=== PATIENT | female | born 1950 | race Caucasian/White ===

== ENCOUNTER → 2018-09-30 | Outpatient (CLI) | payer OTHER ==
--- NOTE | 2018-10-01 10:12 | MM ---
Reason for exam: clinical finding. Last mammogram was performed 4 years and 4 months ago. History: Patient is postmenopausal. Family history of breast cancer in maternal aunt at age 40 and breast cancer in mother at age 51. Benign US LT VAD breast biopsy of the left breast, July 17, 2012. Cyst aspiration of the left breast. Taking estrogen for 2 years 2 months. Taking progesterone. Physical Findings: Nurse Summary: 2cm nodule in the right breast at 9-10 o'clock (nurse cw). MG 3D Diag Mammo W/Cad ANAYELI Bilateral CC and MLO view(s) were taken. Prior study comparison: June 03, 2014, bilateral MG screening mammo w CAD. July 17, 2012, left breast digital mammogram. The breast tissue is almost entirely fat. Finding: There is an intermediate concern, suspicious 23 mm circumscribed lobulated mass located 5-10 cm from the nipple in the upper outer quadrant of the right breast consistent with mass. These results were verbally communicated with the patient and result sheet given to the patient on 09/30/18. ASSESSMENT: Incomplete: need additional imaging evaluation, BI-RAD 0 RECOMMENDATION: Ultrasound of the right breast.
--- NOTE | 2018-10-01 10:14 | USB ---
Reason for exam: additional evaluation requested from abnormal screening. History: Patient is postmenopausal. Family history of breast cancer in maternal aunt at age 40 and breast cancer in mother at age 51. Benign US LT VAD breast biopsy of the left breast, July 17, 2012. Cyst aspiration of the left breast. Taking estrogen for 2 years 2 months. Taking progesterone. US Breast Limited RT Right limited breast ultrasound including focal area of concern, retroareolar and axilla demonstrates a 1.8 x 1.6 x 1.8cm irregular, hypoechoic, vascular lesion at 10 o'clock and a 2.7 x 3.3cm lymph node at the axilla. These results were verbally communicated with the patient and result sheet given to the patient on 09/30/18. ASSESSMENT: Highly suggestive of malignancy, BI-RAD 5 RECOMMENDATION: Surgical consultation and ultrasound core biopsy of the right breast. Called Dr. Conner with mammographic findings and has scheduled an appointment for the patient for 10/17/18 at 12:[address] Hendrickson. Biopsy scheduled for 10/28/18 at 12:20. PRELIMINARY REPORT CALLED AND FAXED TO DR. HENDRICKSON ON 10/01/18.
== END | disposition home or self-care (01) ==
LOC: RADMAMWWP 13:31
PROVIDERS: ATTEND Family Medicine
DX: N63.10 Unspecified lump in the right breast, unspecified quadrant (principal)
CPT/HCPCS: 77062; 77066

== ENCOUNTER → 2018-10-17 | Outpatient (CLI) | payer OTHER ==
[2018-10-17 12:22] VITALS: BP 116/78; PULSE 83; RESP 20; TEMP 98.4; BMI 38.0
--- NOTE | 2018-10-17 12:30 | P.GSHP ---
History of Present Illness H&P Date: 10/17/18 Chief Complaint: abnormal mammogram The patient is a 67-year-old white female who September 02 noted a lump in her right breast. She subsequently underwent a mammogram and ultrasound. The mammogram revealed an area of concern in the breast and ultrasound was performed. Ultraso und revealed a 1.8 x 1.8 cm irregular lesion at 10:00 and a 2.7 x 2.2 cm lymph node in the axilla. She is scheduled for ultrasound-guided core biopsy of both areas on October 28. Her prior mammogram was 4 years ago. The patient has no other masses or lumps in her breasts. She has no nipple discharge or skin changes of concern. Family history: 1. daughter: 11 year old daughter of a brain cancer 2. mother: lung 3. maternal aunt: breast 4. maternal aunt: breast cancer Hormonal History menarche:14 , 2 miscarraiges, breast fed: no, age at first : 28 menopause: hysterectomy complete at 52 done for bleeding BCP: 41 years hormones: none Surgical history: 1. Hysterectomy complete 2. Tonsillectomy 3. Cholecystectomy 4. Ectopic pregnancies and appendectomy 5. Back surgery 6. Wrist surgery 7. Right elbow surgery 8. All of her teeth have been extracted Medical History: 1. Back pain 2. Fibromyalgia 3. asthma 4. High cholesterol 5. Eczema Social History: smoke: none alcohol: social drugs: CBD oil - Constitutional Constitutional: Denies chills, Denies fever - EENT Eyes: bilateral blurred vision, denies pain Ears: left: decreased hearing, bilateral: tinnitus Ears, nose, mouth and throat: Reports headache, Denies sore throat - Breasts Breasts: bilateral: as per HPI - Cardiovascular Comment: a valve that "sticks" Cardiovascular: Denies chest pain, Denies shortness of breath - Respiratory Comment: Bronchial asthma - Gastrointestinal Comment: IBS, colon polyp - Genitourinary (Female) Genitourinary: Denies dysuria, Denies hematuria - Menstruation Menstruation: Reports post hysterectomy - Musculoskeletal Comment: Fibromyalgia, back surgery - Integumentary Comment: Eczema - Neurological Neurological: Reports paresthesias - Psychiatric Psychiatric: Reports anxiety, Reports depression - Endocrine Endocrine: Reports fatigue, Denies weight change - Hematologic/Lymphatic Comment: none - Allergic/Immunologic Allergic/Immunologic: Reports seasonal allergies Past Medical History Past Medical History: Asthma, Fibromyalgia, GERD/Reflux, Hyperlipidemia, Hypertension, Osteoarthritis (OA) Additional Past Medical History / Comment(s): chronic neck and back pain, UTI,ECZEMA, IBS,NEUROPATHY, diverticulosis, scoliosis, polyps, bilateral carpal tunnel History of Any Multi-Drug Resistant Organisms: None Reported Past Surgical History: Appendectomy, Back Surgery, Bladder Surgery, Cholecystectomy, Hysterectomy Additional Past Surgical History / Comment(s): right leg, bilateral feet, bilateral wrists for carpal tunnel, colonoscopy, bladder suspension, BACK SX(FUSION -HAD METAL IN BACK, since been removed), HX ECTOPIC . Surgery on left hand. Past Anesthesia/Blood Transfusion Reactions: Blood Transfusion Reaction Additional Past Anesthesia/Blood Transfusion Reaction / Comment(s): Patients states had a blood transfusion and woke up with red dots all over her skin and the nurse told her she had a reaction to the blood. Past Psychological History: Anxiety Additional Psychological History / Comment(s): PT 'S DAUGHTER AT AGE 9 FROM BRAIN TUMOR (1990) Smoking Status: Never smoker Past Alcohol Use History: Occasional Past Drug Use History: Marijuana Additional Drug Use History / Comment(s): Rarely - Past Family History Father Family Medical History: Congestive Heart Failure (CHF), Hyperlipidemia, Hypertension Additional Family Medical History / Comment(s): LIVED TO AGE 89, HX MALARIA Mother Family Medical History: Cancer Additional Family Medical History / Comment(s): BRAIN ANEURYSM AT AGE 56 Medications and Allergies Home Medications Medication Instructions Recorded Confirmed Type Albuterol Inhaler [Ventolin Hfa 1 - 2 puff INHALATION Q6H PRN 03/30/14 10/14/18 History Inhaler] Cholecalciferol [Vitamin D3 (25 1,000 unit PO DAILY 03/30/14 10/14/18 History Mcg = 1000 Iu)] Cyclobenzaprine [Flexeril] 10 mg PO HS 03/30/14 10/14/18 History Multivitamins, Thera [Multivitamin 1 each PO DAILY 03/30/14 10/14/18 History (formulary)] Aspirin EC [Ecotrin Low Dose] 81 mg PO DAILY 05/10/15 10/14/18 History Budesonide [Pulmicort Flexhaler] 180 mcg INHALATION DAILY 05/10/15 10/14/18 History Fluticasone/Vilanterol [Breo 200 mg INHALATION DAILY 05/10/15 10/14/18 History Ellipta 200-25 Mcg INH] Gabapentin [Neurontin] 400 mg PO QID 05/10/15 10/14/18 History HYDROcodone/APAP 10-325MG [[place] 1 tab PO Q6H 05/10/15 10/14/18 History 10-325] Sustain Balance 1 drop BOTH EYES BID 05/10/15 10/14/18 History DULoxetine HCL [Cymbalta] 60 mg PO QAM 06/15/15 10/14/18 History Atorvastatin [Lipitor] 20 mg PO DAILY 10/14/18 10/14/18 History Cannabidiol (Cbd) Extract 1 each PO DAILY 10/14/18 10/14/18 History [Epidiolex] Valsartan/Hydrochlorothiazide 1 each PO DAILY 10/14/18 10/14/18 History [Valsartan-Hctz 320-25 mg Tab] Allergies Allergy/AdvReac Type Severity Reaction Status Date / Time lactase [From Dairy Aid] Allergy Swelling Verified 10/14/18 12:39 latex Allergy Rash/Hives Verified 10/14/18 12:39 Latex, Natural Rubber Allergy Rash/Hives Verified 10/14/18 12:39 Sulfa (Sulfonamide Allergy Swelling Verified 10/14/18 12:39 Antibiotics) egg AdvReac Nausea & Verified 10/14/18 12:39 Vomiting & Diarrhea Milk Containing Products AdvReac Nausea & Verified 06/15/15 11:20 Vomiting & Diarrhea wheat AdvReac Nausea & Verified 10/14/18 12:39 Vomiting & Diarrhea Surgical - Exam BMI 38.1 - General obese - Eyes normal ocular movement - ENT no hearing loss, no congestion - Neck no masses, trachea midline - Respiratory normal respiratory effort, clear to auscultation - Cardiovascular Rhythm: regular Heart Sounds: normal: S1, S2 - Abdomen Abdomen: soft, non tender, no guarding, no rigid, no rebound - Integumentary normal turgor - Neurologic no disoriented, no combative - Musculoskeletal normal gait, normal posture - Psychiatric oriented to time, oriented to person, oriented to place, speech is normal, memory intact breast exam: bra 46C Right breast: Multi-positional exam fibrocystic changes, firm nodularity at the 12 o'clock position approximately 2 cm, right axillary tail firm nodularity approximately 3 cm lesion Right axilla: Right axillary tail of breast approximately 3 cm lesion Left breast: Multi-positional exam no dominant masses or nodules of concern Left axilla: No adenopathy of concern Right breast is larger than the left breast Results Mammogram and ultrasound results revealed Assessment and Plan Assessment: Impression: 1. Abnormal right breast mammogram 2. Abnormal right breast ultrasound 2. Family history of cancer 4. Mass in right breast 5. Mass right axilla 6. Fibromyalgia 7. Back pain 8. Asthma 9. 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 Patient is to have right breast and axillary ultrasound guided biopsy 2. Medical management of medical conditions Cc: Dr. Conner
== END ==
LOC: WWCWWP 11:53
PROVIDERS: ATTEND Surgery
DX: Z53.9 Procedure and treatment not carried out, unspecified reason (principal)

== ENCOUNTER → 2018-10-28 | Day surgery (SDC) | payer OTHER ==
[2018-10-28 11:57] VITALS: RESP 16; BMI 35.4
[2018-10-28 13:06] VITALS: BP 107/63; PULSE 74; TEMP 98.2
--- NOTE | 2018-10-28 13:22 | USB ---
EXAMINATION TYPE: US biopsy breast VAD RT, US breast needle core RT, MG diagnostic mammo RT wo CAD DATE OF EXAM: 10/28/2018 CLINICAL HISTORY: R98.2 ABNORMAL MAMMOGRAM. TECHNIQUE: Ultrasound guided core biopsy of right breast and axillary lymph node. COMPARISON: Bilateral diagnostic mammogram and right breast ultrasound dated 09/30/2018 FINDINGS: The procedure of ultrasound guided core biopsy was explained to the patient. Benefits, alternatives, and risks were discussed. An informed consent was then obtained. Site A: 1.8 cm highly suspicious mass at the 10:00 position. The patient was placed in supine positioning for imaging and for the procedure. The overlying skin was prepped and draped in usual sterile fashion. 10 cc of 1% lidocaine was used as anesthetic into the skin and subcutaneous tissue and 7 cc of lidocaine with epinephrine was utilized to anesthetize the subcutaneous tissues directly surrounding the site of biopsy of the 1.8 x 1.6 x 1.8 cm irregular, hypoechoic, vascular highly suspicious mass at the 10:00 position in the right breast. Under ultrasound guidance, a 12-gauge vacuum assisted biopsy gun device was used to obtain 6 core samples. Following this, a coil-shaped biopsy marker was left in the mass. Placement was confirmed on postbiopsy mammogram. Site B: 3.3 cm abnormal right axillary lymph node. The patient was placed in supine positioning for imaging and for the procedure. The overlying skin was prepped and draped in usual sterile fashion. 10 cc of 1% lidocaine was used as anesthetic into the skin and subcutaneous tissue up to an abnormally enlarged right axillary lymph node measuring 3.3 cm with cortical thickening. Under ultrasound guidance, a 18-gauge Social IQ (Social Influence Quotient) biopsy gun device was used to obtain 3 core samples. Following this, a Hydromark biopsy marker was placed in the lymph node. Confirmed on post procedural mammogram. The patient tolerated the procedure well without any immediate complication. The patient was kept in the radiology department for short stay after the procedure and then discharged home in stable condition. IMPRESSION: Successful, uncomplicated ultrasound guided core biopsy of a 1.8 cm highly suspicious mass at the 10:00 position in the right breast and abnormal 3.3 cm right axillary lymph node with cortical thickening, full pathology results to follow. Pathology Results: Malignant A. RIGHT BREAST, 10:00, ULTRASOUND GUIDED CORE BIOPSY: Scar and fat necrosis with prominent lymphoreticular inflammatory infiltrate. No malignancy is identified. See note. B. RIGHT AXILLA, CORE BIOPSY: Metastatic poorly differentiated non-small cell carcinoma consistent with breast primary, involving lymph node core biopsy tissue. See note. Recommendation Surgical consult and repeat biopsy of the right breast. Right axillary node, malignant, concordant, surgical consultation. Right 10 o'clock mass, discordant, repeat ultrasound guided biopsy. MTDD
== END ==
LOC: RADUSWWP 11:15
PROVIDERS: ATTEND Surgery
DX: C77.3 Secondary and unspecified malignant neoplasm of axilla and upper limb lymph nodes (principal); N64.1 Fat necrosis of breast; L90.5 Scar conditions and fibrosis of skin; R92.8 Other abnormal and inconclusive findings on diagnostic imaging of breast
CPT/HCPCS: 88305; 88342; 88341; 77065; 38505; 19083; A4648; J2001

== ENCOUNTER → 2018-11-03 | Outpatient (CLI) | payer OTHER ==
[2018-11-03 13:21] VITALS: BP 127/73; PULSE 91; RESP 18; TEMP 98; BMI 37.2
--- NOTE | 2018-11-03 14:12 | P.PN ---
Subjective Progress Note Date: 11/03/18 Principal diagnosis: right breast axillary cancer Teagan is a 67-year-old white female status post right breast biopsy at 10:00 and right axilla biopsy. The right breast biopsy revealed scar and fat necrosis in the right axillary biopsy revealed metastatic poorly differentiated non-small cell carcinoma. The patient does not have any complaints related to the biopsy. Her radiographs were reviewed with a radiologist and it does appear that the area in the right breast although highly suggestive of malignancy was adequately sampled. Secondary to the positive result in the axilla and the negative result in the breast was recommended that the biopsy be performed. I discussed with the patient if this was negative on rebiopsy we would recommend resection in the operating room of the area of concern in the right breast. However prior to this the biopsy will be performed in her case will be presented at tumor Board. We have also recommended that she be seen by medical oncology. The lesion was ER positive LA negative and HER-2 positive. Objective - Vital Signs Vital signs: Vital Signs Temp 98.0 F 11/03/18 12:51 Pulse 91 11/03/18 12:51 Resp 18 11/03/18 12:51 BP 127/73 11/03/18 12:51 Pulse Ox 97 11/03/18 12:51 - Exam BMI 37.2 - Constitutional General appearance: Present: obese - EENT Eyes: Present: EOMI ENT: Present: hearing grossly normal - Neck Neck: Present: normal ROM - Respiratory Respiratory: bilateral: CTA - Cardiovascular Rhythm: regular Heart sounds: normal: S1, S2 - Integumentary Integumentary: Present: normal turgor - Musculoskeletal Musculoskeletal: Present: gait normal - Psychiatric Psychiatric: Present: A&O x's 3, appropriate affect, intact judgment & insight - Additional findings Additional findings: Right breast biopsy site: Puncture site clean and dry No evidence of infection Assessment and Plan Assessment: Impression: 1. Right axillary biopsy positive for malignancy 2. Right breast biopsy negative for malignancy although highly suspicious on mammogram 3. Pain 4. Fibromyalgia 5. Asthma 6. High cholesterol 7. Eczema Plan: 1. Appointment medical oncology positive axillary node consistent with breast primary 2. Repeat biopsy lesion in the breast 2. Presented at tumor board 4. Medical management of medical conditions CC: Dr. Conner
== END | disposition home or self-care (01) ==
LOC: WWCWWP 11:54
PROVIDERS: ATTEND Surgery
DX: Z53.9 Procedure and treatment not carried out, unspecified reason (principal)

== ENCOUNTER → 2018-11-12 | Day surgery (SDC) | payer OTHER ==
[2018-11-12 13:35] VITALS: RESP 16; BMI 38.9
[2018-11-12 14:49] VITALS: BP 129/82; PULSE 78; TEMP 97.9
--- NOTE | 2018-11-12 21:23 | USB ---
EXAMINATION TYPE: US biopsy breast VAD RT DATE OF EXAM: 11/12/2018 CLINICAL HISTORY: R92.8 ABN MAMMO. Neoplasm within the axillary lymph node, and located primary TECHNIQUE: Ultrasound guided core biopsy of right breast. COMPARISON: NONE FINDINGS: The procedure of ultrasound guided core biopsy was explained to the patient. Benefits, alternatives, and risks were discussed. Discussions included standard infection and bleeding. An informed consent was then obtained. A timeout was performed. The patient was placed in supine positioning for imaging and for the procedure. The overlying skin was prepped with Betadine and draped in usual sterile fashion. Lidocaine buffered with bicarbonate was used as anesthetic into the skin and subcutaneous tissue up to area of concern in the right breast. A nisha was made with surgical scalpel. Under ultrasound guidance, a 12-gauge vacuum assisted biopsy gun device was used to obtain 12 core samples. 8 were obtained near the previous biopsy site. An additional 4 were obtained along the superior margin somewhat away from the previous biopsy site, the lesion may be 9 mm in size and essentially contiguous with the subsequent biopsies along the superior margin in all samples were submitted is a single sample. Following this, a biopsy clip was left in the lesion superior to the deep biopsy site deep to the superficial biopsy site. There was some bleeding present and the fourth sample at the superior site and the procedure was terminated. Blood loss was estimated at 10 mL or less. However, while holding pressure for good hemostasis a small hematoma was felt to be present. Additional direct pressure was obtained. While monitoring the patient was felt that this hematoma increased in size and additional imaging was performed for evaluation. Real-time observation was performed. The estimated of the hematoma size originally was 5 x 7 cm. A suspicious focal hematoma was not evident. There is suggestion of a lobular low density suggesting pockets of hemorrhage. However, Doppler sonography and color flow sonography do not identify active bleeding at the time of observation. This hematoma appeared stable following monitoring the patient in the department. Standard discharge instructions as well as specific instructions regarding the hematoma were discussed with the patient including contacts and active bleeding treatment. The patient tolerated the procedure well. The patient was kept in the radiology department for short stay after the procedure and then discharged home in stable condition. Postprocedure mammogram: Due to the hematoma formation procedure mammogram was deferred at this time. IMPRESSION: 1. Successful biopsy of a suspicious ultrasound abnormality from both inferior and superior to the lesion. 2. Subsequent hematoma formation following the biopsy. Recommendations: 1. Recommendations are pending pathology results of this biopsy site. 2. Treatment options should be considered for the positive previous lymph node biopsy results with neoplasm Pathology Results: Benign RIGHT BREAST AT TEN O'CLOCK, ULTRASOUND GUIDED CORE BIOPSY: Nodular scar with fat necrosis and prominent lymphohistiocytic inflammation. Negative for malignancy. See note. Recommendation Surgical consult of the right breast. 1. Excision at 10 o'clock recommended. 2. MRI of the breasts recommended. 3. Treatment of positive right axillary node. MTDD
== END ==
LOC: RADUSWWP 13:23
PROVIDERS: ATTEND Surgery
DX: N64.1 Fat necrosis of breast (principal); L98.6 Other infiltrative disorders of the skin and subcutaneous tissue; L90.5 Scar conditions and fibrosis of skin; R92.8 Other abnormal and inconclusive findings on diagnostic imaging of breast; Z91.012 Allergy to eggs; Z91.040 Latex allergy status; Z91.011 Allergy to milk products; Z88.2 Allergy status to sulfonamides; Z91.018 Allergy to other foods; Z91.048 Other nonmedicinal substance allergy status
CPT/HCPCS: 88305; 19083; A4648; J2001

== ENCOUNTER → 2018-11-27 | Outpatient (CLI) | payer OTHER ==
[2018-11-27 13:12] VITALS: BP 115/75; PULSE 90; RESP 18; TEMP 98.2; BMI 39.4
--- NOTE | 2018-11-27 13:26 | P.PN ---
Subjective Progress Note Date: 11/27/18 Principal diagnosis: Biopsy-proven malignancy in the right axillary lymph node Teagan is a 67-year-old white female status post ultrasound-guided core biopsy of the right axilla. This was positive for metastatic poorly differentiated non-small cell carcinoma consistent with breast primary. This is ER positive IA negative and HER-2 positive. The patient had a highly suspicious lesion in the right breast for which she underwent ultrasound-guided core biopsy twice. The first core biopsy was done on and shows scar and fat necrosis. Secondary to the BIRADS 5 appearance of the lesion and repeat core biopsy was performed on 11/12/2018 this also showed nodular scar with fat necrosis and prominent lymphohistiocytic inflammation. The patient developed a ecchymosis and hematoma after the second biopsy. The patient is not complaining of any problems with pain or infection. The patient's case was presented at tumor board and of concern is the fact that the lesion was identified in the breast on mammogram and ultrasound which is considered a BIRADS 5 highly suggestive of malignancy. 2 core biopsies of this have been negative for cancer. She does have a positive axillary lymph node which was biopsied via core biopsy. After discussion at tumor board it is recommended the patient undergo a PET scan as well as bilateral breast MRI. Both have been scheduled. Family history: 1. Daughter: 11 of brain cancer 2. Mother: Lung cancer 3. Maternal aunt: Breast cancer 4. Second maternal aunt: Breast cancer Objective - Vital Signs Vital signs: Vital Signs Temp 98.2 F 11/27/18 13:08 Pulse 90 11/27/18 13:08 Resp 18 11/27/18 13:08 BP 115/75 11/27/18 13:08 Pulse Ox 95 11/27/18 13:08 - Exam BMI 39.4 - Constitutional General appearance: Present: obese - EENT Eyes: Present: EOMI ENT: Present: hearing grossly normal - Neck Neck: Present: normal ROM - Respiratory Respiratory: bilateral: CTA - Cardiovascular Rhythm: regular Heart sounds: normal: S1, S2 - Integumentary Integumentary Comment(s): Right breast: Patient has minimal ecchymosis however there is approximately a 7 cm hematoma at the site of her core biopsy. Integumentary: Present: normal turgor Assessment and Plan Assessment: Impression: 1. Abnormal right breast mammogram 2. Abnormal right breast ultrasound 3. Family history of cancer 4. Mass in right breast 5. Mass right axilla 6. Fibromyalgia 7. Back pain 8. Asthma 9. Patient with valvular heart dysfunction 10. Hematoma at site of recent core biopsy biopsy was negative for cancer on 2 occasions Plan: 1. Patient's case has been presented at tumor Board and the patient is recommended to undergo a bilateral breast MRI to try to find the source of the positive axillary node. The lesion in the breast remains highly suggestive of malignancy and if the MRI is negative needle local excisional biopsy will most likely be recommended if the MRI shows a positive area it may be that the patient will be recommended to undergo MRI directed biopsy 2. PET scan this is been ordered 3. Consider genetic testing 4. Follow up here after her PET scan and breast MRI CC: Dr. Conner
== END | disposition home or self-care (01) ==
LOC: WWCWWP 11-12 12:50
PROVIDERS: ATTEND Surgery
DX: Z53.9 Procedure and treatment not carried out, unspecified reason (principal)

== ENCOUNTER → 2018-11-29 | Outpatient (CLI) | payer OTHER ==
--- NOTE | 2018-12-01 07:28 | PE ---
EXAMINATION TYPE: PET CT fusion skull to thigh DATE OF EXAM: 11/29/2018 COMPARISON: Chest CT October 13, 2014 HISTORY: Newly diagnosed right breast cancer on lymph node biopsy October 28, 2018 TECHNIQUE: Following the intravenous administration of 12.19 mCi of F-18 FDG, whole body images are performed from the skull base to the midthigh. Images are reviewed on the computer in the coronal, a xial, and sagittal planes. Reconstructed rotating images are created on independent workstation and reviewed on the computer. A noncontrast CT is performed in conjunction with the PET scan. SCAN: Initial Scan FINDINGS: Suboptimal study due to body habitus. SKULL BASE AND NECK: Focus of abnormal hypermetabolic uptake at level of right vocal cord axial carole ge [address] abnormality with involvement of the right aryepiglottic fold. Max SUV at this level with 4.93. Consider direct visualization. There is 1.0 x 0.7 cm hypermetabolic right parotid nodule axial image 28 that warrants further workup . Max SUV is 5.37 at this level. Adjacent prominent but subcentimeter ametabolic lymph node is seen i nferior deep to this axial image 31. CHEST, MEDIASTINUM, AND HILAR REGION: Redemonstration of known right axillary neoplasm measuring 3.0 x 1.7 cm axial image 83 with max SUV of 6.05. Some misregistration artifact at this level is noted. E ntire right breast not included in field of view CT images with mild lateral hypermetabolic uptake ax ial image 87 on the PET images. Max SUV of only 1.6. Mild uptake posterior lateral left shoulder muscle is presumed inflammatory given vertical orientati on. No areas of suspicious hypermetabolic uptake in the left breast or visualized portions of the tho rax. ABDOMEN AND PELVIS: No areas of suspicious hypermetabolic uptake in the abdomen or pelvis seen. Mild uptake involving lateral proximal thigh muscles is presumed postinflammatory. OSSEOUS STRUCTURES: No suspicious hypermetabolic uptake. OTHER CT: Cholecystectomy clips are seen. Subcentimeter hyperdense focus anterior left kidney axial i mage 134 favors proteinaceous cyst. Uterus suspected surgically absent. Postsurgical changes lower lumbar spine is present. There is prominent spurring and disc space narrow ing in the lower cervical spine. IMPRESSION: No metastatic malignancy is evident in the abdomen or pelvis or thorax and opposite left breast. Suboptimal study due to large body habitus. Redemonstration of known right axillary neoplasm. Suspicious right parotid lesion, advise ENT referral and consider ultrasound-guided sampling. Attent ion to right aryepiglottic fold near the vocal cord at time of ENT referral. Bilateral breast MRI sti ll advised.
== END | disposition home or self-care (01) ==
LOC: RADPETMAIN 10:33
PROVIDERS: ATTEND Internal Medicine Hematology & Oncology
DX: C50.911 Malignant neoplasm of unspecified site of right female breast (principal)
CPT/HCPCS: 78815; A9552

== ENCOUNTER → 2018-12-08 | Outpatient (CLI) | payer OTHER ==
--- NOTE | 2018-12-08 16:45 | ECHOF ---
Referral Reason:C50.911 breast ca MEASUREMENTS -------- HEIGHT: 160.0 cm WEIGHT: 102.5 kg BP: RVIDd: 4.4 cm (< 3.3) IVSd: 1.1 cm (0.6 - 1.1) LVIDd: 4.3 cm (3.9 - 5.3) LVPWd: 1.2 cm (0.6 - 1.1) IVSs: 1.2 cm LVIDs: 3.0 cm LVPWs: 1.3 cm LA Diam: 3.4 cm (2.7 - 3.8) LAESV Index (A-L): 22.53 ml/m Ao Diam: 3.6 cm (2.0 - 3.7) AV Cusp: 1.2 cm (1.5 - 2.6) LA Diam: 3.2 cm (2.7 - 3.8) MV EXCURSION: 18.048 mm (> 18.000) MV EF SLOPE: 70 mm/s (70 - 150) EPSS: 1.0 cm MV E German: 0.57 m/s MV DecT: 258 ms MV A German: 0.69 m/s MV E/A Ratio: 0.83 AR PHT: 534 ms RAP: 5.00 mmHg RVSP: 24.37 mmHg FINDINGS -------- Sinus rhythm. This was a technically adequate study. LV size, wall thickness and systolic function are normal, with an EF greater than 55%. The left severo tricular size is normal. The diastolic filling pattern is normal for the age of the patient 7.19. The right ventricle is normal in size. Normal LA size by volume 22+/-6 ml/m2. The right atrial size is normal. There is mild aortic valve sclerosis. There is mild aortic regurgitation. Mild mitral annular calcification present. Mild mitral regurgitation is present. Mild tricuspid regurgitation present. There is no evidence of pulmonary hypertension. The right v entricular systolic pressure, as measured by Doppler, is 24.37mmHg. The pulmonic valve was not well visualized. The aortic root size is normal. There is no pericardial effusion. CONCLUSIONS -------- 1. Sinus rhythm. 2. This was a technically adequate study. 3. LV size, wall thickness and systolic function are normal, with an EF greater than 55%. 4. The left ventricular size is normal. 5. The diastolic filling pattern is normal for the age of the patient 7.19 6. Normal LA size by volume 22+/-6 ml/m2. 7. There is mild aortic valve sclerosis. 8. There is mild aortic regurgitation. 9. Mild mitral annular calcification present. 10. Mild mitral regurgitation is present. 11. Mild tricuspid regurgitation present. 12. There is no evidence of pulmonary hypertension. 13. The pulmonic valve was not well visualized. 14. The aortic root size is normal. 15. There is no pericardial effusion. SHIP'S OFFICER: Elyssa Cano RDCS
== END | disposition home or self-care (01) ==
LOC: RADECHMAIN 11:13
PROVIDERS: ATTEND Internal Medicine Hematology & Oncology
DX: Z08 Encounter for follow-up examination after completed treatment for malignant neoplasm (principal); I08.3 Combined rheumatic disorders of mitral, aortic and tricuspid valves
CPT/HCPCS: 93306

== ENCOUNTER 2018-12-15 08:52 | Day surgery (SDC) | payer OTHER ==
[2018-12-15 09:33] VITALS: RESP 18; TEMP 98.7
[2018-12-15 11:10] VITALS: BP 145/70; PULSE 89
--- NOTE | 2018-12-15 13:57 | US ---
ULTRASOUND GUIDED PAROTID GLAND MASS CORE BIOPSY: CLINICAL HISTORY: Her right parotid gland FINDINGS: The procedure was explained to the patient. The risks, complications, benefits and alternatives were discussed and any questions were answered. Informed consent was obtained. Patient was placed supin e on the ultrasound table and prepped and draped in the usual sterile fashion. Utilizing a 18 G core biopsy needle single samples obtained of the right parotid mass. Patient was stable throughout the procedure. Pathology is pending. All elements of maximal barrier technique were utilized. IMPRESSION: 1. Successful ultrasound guided core biopsy of the right parotid gland mass.
== END 2018-12-15 10:50 | disposition home or self-care (01) ==
LOC: RADPROMAIN 08:52
PROVIDERS: ATTEND Internal Medicine Hematology & Oncology
DX: K11.8 Other diseases of salivary glands (principal); C50.919 Malignant neoplasm of unspecified site of unspecified female breast
CPT/HCPCS: 42400; 76942; 88305

== ENCOUNTER 2019-03-04 17:46 | Emergency (ER) | payer OTHER, MEDICARE ==
[2019-03-04] MEDS ORDERED: SODIUM CHLORIDE 0.9% 1,000 ML IV STA (19:03)
[2019-03-04] MEDS ORDERED: ACETAMINOPHEN TAB 500 MG TAB PO STA (19:03)
[2019-03-04] MEDS ORDERED: KETOROLAC 30 MG/ML 1 ML VIAL IVP STA (19:24)
--- NOTE | 2019-03-04 19:33 | XR ---
EXAMINATION TYPE: XR chest 1V portable DATE OF EXAM: 03/04/2019 COMPARISON: NONE HISTORY: Fever TECHNIQUE: Single view FINDINGS: There is right central venous catheter with tip in the superior vena cava. Lungs are clear of infiltrate. There is elevated right diaphragm. Bony thorax is intact. There is no sign of pleural effusion. IMPRESSION: Elevated right diaphragm could relate to some paralysis. No acute lung disease.
--- NOTE | 2019-03-04 20:05 | ED ---
General Adult HPI - General Chief complaint: Fever Stated complaint: FEVER Time Seen by Provider: 03/04/19 19:03 Source: patient Mode of arrival: ambulatory Limitations: no limitations - History of Present Illness Initial comments: Dictation was produced using [employer] dictation software. please excuse any grammatical, word or spelling errors. Chief Complaint: 68-year-old feel presents with pyrexia. History of Present Illness: She is 68-year-old female presents today with pyrexia. Patient has history of breast cancer. She had chemotherapy last week. She was at home and she measured a temperature to be 100.7 orally. Patient was instructed by her oncologist to check her temperature couple times a day and to come to the emergency department if she is above 100. Patient denies any symptoms at this time. She wishes a little shaky but denies any constitutional symptoms. The ROS documented in this emergency department record has been reviewed and confirmed by me. Those systems with pertinent positive or negative responses have been documented in the HPI. All other systems are other negative and/or noncontributory. PHYSICAL EXAM: General Impression: Alert and oriented x3, not in acute distress HEENT: Normocephalic atraumatic, extra-ocular movements intact, pupils equal and reactive to light bilaterally, mucous membranes moist. Cardiovascular: Heart regular rate and rhythm, S1&S2 audible, no murmurs, rubs or gallops Chest: Lungs clear to auscultation bilaterally, no rhonchi, no wheeze, no rales Abdomen: Bowel sounds present, abdomen soft, non-tender, non-distended, no organomegaly Musculoskeletal: Pulses present and equal in all extremities, no peripheral edema Motor: no focal deficits noted Neurological: CN II-XII grossly intact, no focal motor or sensory deficits noted Skin: Intact with no visualized rashes Psych: Normal affect and mood ED course: 68-year-old female presents with elevated temperature at home. Temperature in the emergency department and 0.7. Rest vital signs within acceptable limits. She has no localizing symptoms. Laboratory evaluation obtained. Leukopenia 1.4. Metabolic panel shows sodium 129, potassium 2.8. Metabolic rest metabolic panel is unremarkable. Urinalysis is negative. Flu and strep test is negative. Chest x-ray is nonacute. Repeat vital signs shows no pyrexia. She given supplemental potassium and intravenous fluids. Repeat potassium is 3.0. Patient is adamant about being discharged. Patient given option to be admitted for medical monitoring and recheck of electrolytes abnormalities morning. She refuses and would rather be discharged with outpatient management of symptoms. States that she can manage her symptoms at home. Patient must follow-up with oncologist or primary care physician for recheck of electrolyte abnormalities tomorrow. - Related Data Home Medications Medication Instructions Recorded Confirmed Albuterol Inhaler [Ventolin Hfa 1 - 2 puff INHALATION RT-QID PRN 03/30/1402/15 Inhaler] Cholecalciferol [Vitamin D3 (25 1,000 unit PO DAILY 03/30/14 03/05/19 Mcg = 1000 Iu)] Cyclobenzaprine [Flexeril] 10 mg PO HS 03/30/14 03/05/19 Multivitamins, Thera [Multivitamin 1 tab PO DAILY 03/30/14 03/05/19 (formulary)] Fluticasone/Vilanterol [Breo 2 puff INHALATION RT-DAILY 05/10/15 03/05/19 Ellipta 200-25 Mcg INH] Gabapentin [Neurontin] 400 mg PO QID 05/10/15 03/05/19 HYDROcodone/APAP 10-325MG [[place] 1 tab PO QID 05/10/15 03/05/19 10-325] Atorvastatin [Lipitor] 20 mg PO HS 10/14/18 03/05/19 Ascorbic Acid [Vitamin C] 1,000 mg PO DAILY 03/05/19 03/05/19 Calcium/Magnesium/Zinc 4 tab PO DAILY 03/05/19 03/05/19 [Muptkew-Dhshkffci-Dqij Tablet] DULoxetine HCL [Cymbalta] 60 mg PO DAILY 03/05/19 03/05/19 Magnesium Oxide 400 mg PO DAILY 03/05/19 03/05/19 Nystatin 1 applic TOPICAL TID PRN 03/05/19 03/05/19 Omeprazole [PriLOSEC] 20 mg PO BID 03/05/19 03/05/19 Ondansetron [Zofran ODT] 4 mg PO Q6H PRN 03/05/19 03/05/19 Prochlorperazine [Compazine] 10 mg PO Q6H PRN 03/05/19 03/05/19 Temazepam [Restoril] 15 mg PO HS PRN 03/05/19 03/05/19 Valsartan/Hydrochlorothiazide 1 tab PO DAILY 03/05/19 03/05/19 [Valsartan-Hctz 320-25 mg Tab] Vitamin E 1,000 unit PO DAILY 03/05/19 03/05/19 Allergies Allergy/AdvReac Type Severity Reaction Status Date / Time lactase [From Dairy Aid] Allergy Swelling Verified 03/05/19 00:05 latex Allergy Rash/Hives Verified 03/05/19 00:05 Latex, Natural Rubber Allergy Rash/Hives Verified 03/05/19 00:05 Sulfa (Sulfonamide Allergy Swelling Verified 03/05/19 00:05 Antibiotics) pollen extracts AdvReac Intermediate Rhinitis Verified 03/05/19 00:05 egg AdvReac Nausea & Verified 03/05/19 00:05 Vomiting & Diarrhea Milk Containing Products AdvReac Nausea & Verified 03/05/19 00:05 Vomiting & Diarrhea wheat AdvReac Nausea & Verified 03/05/19 00:05 Vomiting & Diarrhea Review of Systems ROS Statement: Those systems with pertinent positive or pertinent negative responses have been documented in the HPI. ROS Other: All systems not noted in ROS Statement are negative. Past Medical History Past Medical History: Cancer Additional Past Medical History / Comment(s): chronic neck and back pain, UTI,ECZEMA, IBS,NEUROPATHY, diverticulosis, scoliosis, polyps, bilateral carpal tunnel. Current Right Breast cancer History of Any Multi-Drug Resistant Organisms: None Reported Past Surgical History: Appendectomy, Back Surgery, Bladder Surgery, Cholecystectomy, Hysterectomy Additional Past Surgical History / Comment(s): right leg, bilateral feet, bilateral wrists for carpal tunnel, colonoscopy, bladder suspension, BACK SX(FUSION -HAD METAL IN BACK, since been removed), HX ECTOPIC . Surgery on left hand. Past Anesthesia/Blood Transfusion Reactions: Blood Transfusion Reaction Additional Past Anesthesia/Blood Transfusion Reaction / Comment(s): Patients states had a blood transfusion and woke up with red dots all over her skin and the nurse told her she had a reaction to the blood. Past Psychological History: Anxiety Smoking Status: Never smoker Past Alcohol Use History: Occasional Past Drug Use History: Marijuana - Past Family History Daughter(s) Family Medical History: Cancer Additional Family Medical History / Comment(s): Passed of a brain tumor at the age of 11 in 1990 Father Family Medical History: Congestive Heart Failure (CHF), Hyperlipidemia, Hypertension Additional Family Medical History / Comment(s): LIVED TO AGE 89, HX MALARIA Mother Family Medical History: Cancer Additional Family Medical History / Comment(s): BRAIN ANEURYSM AT AGE 56 General Exam Limitations: no limitations Course Vital Signs 03/04/19 17:56 Temperature 99.7 F H Pulse Rate 100 Respiratory 20 Rate Blood Pressure 100/64 O2 Sat by Pulse 96 Oximetry Medical Decision Making - Lab Data Result diagrams: 03/04/19 19:43 03/05/19 00:10 Lab Results 03/04/19 03/04/19 03/04/19 Range/Units 19:42 19:43 19:43 WBC 1.4 L* (3.8-10.6) k/uL RBC 3.16 L (3.80-5.40) m/uL Hgb 10.3 L (11.4-16.0) gm/dL Hct 28.8 L (34.0-46.0) % MCV 91.1 (80.0-100.0) fL MCH 32.6 (25.0-35.0) pg MCHC 35.7 (31.0-37.0) g/dL RDW 15.3 (11.5-15.5) % Plt Count 148 L (150-450) k/uL Neutrophils % (Manual) 16 % Band Neutrophils % 1 % Lymphocytes % (Manual) 73 % Monocytes % (Manual) 10 % Neutrophils # [employer] Neutrophils # (Manual) 0.20 L* (1.3-7.7) k/uL Lymphocytes # (Manual) 1.02 (1.0-4.8) k/uL Monocytes # (Manual) 0.14 (0-1.0) k/uL Nucleated RBCs 0 (0-0) /100 WBC Manual Slide Review Performed Sodium 129 L (137-145) mmol/L Potassium 2.8 L (3.5-5.1) mmol/L Chloride 91 L (98-107) mmol/L Carbon Dioxide 30 (22-30) mmol/L Anion Gap 8 mmol/L BUN 6 L (7-17) mg/dL Creatinine 0.55 (0.52-1.04) mg/dL Est GFR (CKD-EPI)AfAm >90 (>60 ml/min/1.73 sqM) Est GFR (CKD-EPI)NonAf >90 (>60 ml/min/1.73 sqM) Glucose 100 H (74-99) mg/dL Plasma Lactic Acid Ayaan (0.7-2.0) mmol/L Calcium 9.2 (8.4-10.2) mg/dL Total Bilirubin 0.9 (0.2-1.3) mg/dL AST 35 (14-36) U/L ALT 29 (4-34) U/L Alkaline Phosphatase 55 (38-126) U/L Total Protein 6.5 (6.3-8.2) g/dL Albumin 3.8 (3.5-5.0) g/dL Urine Color Urine Appearance (Clear) Urine pH (5.0-8.0) Ur Specific [place] (1.001-1.035) Urine Protein (Negative) Urine Glucose (UA) (Negative) Urine Ketones (Negative) Urine Blood (Negative) Urine Nitrite (Negative) Urine Bilirubin (Negative) Urine Urobilinogen (<2.0) mg/dL Ur Leukocyte Esterase (Negative) Influenza Type A RNA (Not Detectd) Influenza Type B (PCR) (Not Detectd) Group A Strep Rapid Negative (Negative) 03/04/19 03/04/19 03/05/19 Range/Units 19:43 19:43 00:10 WBC (3.8-10.6) k/uL RBC (3.80-5.40) m/uL Hgb (11.4-16.0) gm/dL Hct (34.0-46.0) % MCV (80.0-100.0) fL MCH (25.0-35.0) pg MCHC (31.0-37.0) g/dL RDW (11.5-15.5) % Plt Count (150-450) k/uL Neutrophils % (Manual) % Band Neutrophils % % Lymphocytes % (Manual) % Monocytes % (Manual) % Neutrophils # Neutrophils # (Manual) (1.3-7.7) k/uL Lymphocytes # (Manual) (1.0-4.8) k/uL Monocytes # (Manual) (0-1.0) k/uL Nucleated RBCs (0-0) /100 WBC Manual Slide Review Sodium (137-145) mmol/L Potassium 3.0 L (3.5-5.1) mmol/L Chloride (98-107) mmol/L Carbon Dioxide (22-30) mmol/L Anion Gap mmol/L BUN (7-17) mg/dL Creatinine (0.52-1.04) mg/dL Est GFR (CKD-EPI)AfAm (>60 ml/min/1.73 sqM) Est GFR (CKD-EPI)NonAf (>60 ml/min/1.73 sqM) Glucose (74-99) mg/dL Plasma Lactic Acid Ayaan 1.4 (0.7-2.0) mmol/L Calcium (8.4-10.2) mg/dL Total Bilirubin (0.2-1.3) mg/dL AST (14-36) U/L ALT (4-34) U/L Alkaline Phosphatase (38-126) U/L Total Protein (6.3-8.2) g/dL Albumin (3.5-5.0) g/dL Urine Color Urine Appearance (Clear) Urine pH (5.0-8.0) Ur Specific [place] (1.001-1.035) Urine Protein (Negative) Urine Glucose (UA) (Negative) Urine Ketones (Negative) Urine Blood (Negative) Urine Nitrite (Negative) Urine Bilirubin (Negative) Urine Urobilinogen (<2.0) mg/dL Ur Leukocyte Esterase (Negative) Influenza Type A RNA Not Detected (Not Detectd) Influenza Type B (PCR) Not Detected (Not Detectd) Group A Strep Rapid (Negative) 03/05/19 Range/Units 00:23 WBC (3.8-10.6) k/uL RBC (3.80-5.40) m/uL Hgb (11.4-16.0) gm/dL Hct (34.0-46.0) % MCV (80.0-100.0) fL MCH (25.0-35.0) pg MCHC (31.0-37.0) g/dL RDW (11.5-15.5) % Plt Count (150-450) k/uL Neutrophils % (Manual) % Band Neutrophils % % Lymphocytes % (Manual) % Monocytes % (Manual) % Neutrophils # Neutrophils # (Manual) (1.3-7.7) k/uL Lymphocytes # (Manual) (1.0-4.8) k/uL Monocytes # (Manual) (0-1.0) k/uL Nucleated RBCs (0-0) /100 WBC Manual Slide Review Sodium (137-145) mmol/L Potassium (3.5-5.1) mmol/L Chloride (98-107) mmol/L Carbon Dioxide (22-30) mmol/L Anion Gap mmol/L BUN (7-17) mg/dL Creatinine (0.52-1.04) mg/dL Est GFR (CKD-EPI)AfAm (>60 ml/min/1.73 sqM) Est GFR (CKD-EPI)NonAf (>60 ml/min/1.73 sqM) Glucose (74-99) mg/dL Plasma Lactic Acid Ayaan (0.7-2.0) mmol/L Calcium (8.4-10.2) mg/dL Total Bilirubin (0.2-1.3) mg/dL AST (14-36) U/L ALT (4-34) U/L Alkaline Phosphatase (38-126) U/L Total Protein (6.3-8.2) g/dL Albumin (3.5-5.0) g/dL Urine Color Yellow Urine Appearance Clear (Clear) Urine pH 6.0 (5.0-8.0) Ur Specific [place] 1.023 (1.001-1.035) Urine Protein Trace H (Negative) Urine Glucose (UA) Negative (Negative) Urine Ketones Negative (Negative) Urine Blood Negative (Negative) Urine Nitrite Negative (Negative) Urine Bilirubin Negative (Negative) Urine Urobilinogen 2.0 (<2.0) mg/dL Ur Leukocyte Esterase Negative (Negative) Influenza Type A RNA (Not Detectd) Influenza Type B (PCR) (Not Detectd) Group A Strep Rapid (Negative) Disposition Clinical Impression: Hypokalemia, Hyponatremia Disposition: HOME SELF-CARE Condition: Good Instructions (If sedation given, give patient instructions): Fever in Adults (ED) Is patient prescribed a controlled substance at d/c from ED?: No Referrals: Rolando Sanderson MD [Primary Care Provider] - 1-2 days Time of Disposition: 00:39
[2019-03-04 20:08] LABS: ALT 29 U/L (4-34); AST 35 U/L (14-36); African American GFR (CKD) >90 (>60 ml/min/1.73 sqM); Albumin 3.8 g/dL (3.5-5.0); Alkaline Phosphatase 55 U/L (38-126); Anion Gap 8 mmol/L; Blood Urea Nitrogen 6 mg/dL (7-17); Calcium 9.2 mg/dL (8.4-10.2); Carbon Dioxide 30 mmol/L (22-30); Chloride 91 mmol/L (98-107); Glucose 100 mg/dL (74-99); Non-African American GFR(CKD) >90 (>60 ml/min/1.73 sqM); Potassium 2.8 mmol/L (3.5-5.1); Sodium 129 mmol/L (137-145); Total Bilirubin 0.9 mg/dL (0.2-1.3); Total Protein 6.5 g/dL (6.3-8.2)
[2019-03-04 20:23] LABS: HCT 28.8 % (34.0-46.0); HGB 10.3 gm/dL (11.4-16.0); MCH 32.6 pg (25.0-35.0); MCHC 35.7 g/dL (31.0-37.0); MCV 91.1 fL (80.0-100.0); Mean Platelet Volume 8.4; Platelet Count 148 k/uL (150-450); RBC 3.16 m/uL (3.80-5.40); RDW 15.3 % (11.5-15.5)
[2019-03-04 20:31] LABS: WBC 1.4 k/uL (3.8-10.6)
[2019-03-04 20:54] LABS: Band Neutrophils % 1 %; Lymphocytes # (M) 1.02 k/uL (1.0-4.8); Monocytes # (M) 0.14 k/uL (0-1.0); Neutrophils % (M) 16 %; Nucleated Red Blood Cells 0 /100 WBC (0-0); Total Cells Counted 100
[2019-03-04] MEDS ORDERED: POTASSIUM CHLORIDE ER 20 MEQ TAB.ER PO STA ×2 (21:00→22:42)
[2019-03-04] MEDS: POTASSIUM CHLORIDE 10 MEQ in WATER FOR INJECTION 1 100ML.BAG IVPB SCH (22:58)
[2019-03-05] MEDS: POTASSIUM CHLORIDE 10 MEQ in WATER FOR INJECTION 1 100ML.BAG IVPB SCH ×2 (00:03→01:17)
[2019-03-05 00:32] LABS: Appearance,Urine Clear (Clear); Bilirubin,Urine Negative (Negative); Blood,Urine Negative (Negative); Color,Urine Yellow; Glucose,Urine (UA) Negative (Negative); Ketones,Urine Negative (Negative); Leukocyte Esterase,Urine Negative (Negative); Nitrite,Urine Negative (Negative); Protein,Urine Trace (Negative); Specific Gravity,Urine 1.023 (1.001-1.035)
[2019-03-05 01:10] VITALS: BP 120/56; PULSE 85; RESP 18; TEMP 99.3
== END 2019-03-05 01:15 | disposition home or self-care (01) ==
LOC: EC 17:46
DX: E87.1 Hypo-osmolality and hyponatremia (principal); E87.6 Hypokalemia; D72.819 Decreased white blood cell count, unspecified; C50.911 Malignant neoplasm of unspecified site of right female breast; R50.9 Fever, unspecified; G62.9 Polyneuropathy, unspecified; G89.29 Other chronic pain; K58.9 Irritable bowel syndrome, unspecified; Z88.2 Allergy status to sulfonamides; Z91.011 Allergy to milk products; Z91.012 Allergy to eggs; Z91.018 Allergy to other foods; Z91.040 Latex allergy status; Z91.048 Other nonmedicinal substance allergy status; Z79.51 Long term (current) use of inhaled steroids; Z79.891 Long term (current) use of opiate analgesic; Z79.899 Other long term (current) drug therapy; Z92.21 Personal history of antineoplastic chemotherapy; Z53.20 Procedure and treatment not carried out because of patient's decision for unspecified reasons
CPT/HCPCS: 36415; 80053; 83605; 85025; 87040; 87081; 87430; 87502; 71045; 99283; 96374; 96375; 96361; J1885; J3480; 81003; 84132

== ENCOUNTER → 2019-05-08 | Outpatient (CLI) | payer OTHER ==
--- NOTE | 2019-05-14 17:00 | ECHOF ---
Referral Reason:Z01.818 Pre Op MEASUREMENTS -------- HEIGHT: 160.0 cm WEIGHT: 87.5 kg BP: IVSd: 1.0 cm (0.6 - 1.1) LVIDd: 3.2 cm (3.9 - 5.3) LVPWd: 1.3 cm (0.6 - 1.1) IVSs: 1.5 cm LVIDs: 2.2 cm LVPWs: 1.7 cm RVIDd: 4.0 cm (< 3.3) LAESV Index (A-L): 33.95 ml/m Ao Diam: 3.5 cm (2.0 - 3.7) AV Cusp: 2.0 cm (1.5 - 2.6) MV E German: 0.53 m/s MV DecT: 176 ms MV A German: 0.70 m/s MV E/A Ratio: 0.76 AR PHT: 522 ms RAP: 5.00 mmHg RVSP: 34.01 mmHg FINDINGS -------- Sinus rhythm. This was a technically adequate study. The left ventricular size is normal. There is mild concentric left ventricular hypertrophy. Overa ll left ventricular systolic function is normal with, an EF between 55 - 60 %. The diastolic fillin g pattern is normal for the age of the patient 6.62. The right ventricle is moderately enlarged. LA is midly dilated 29-33ml/m2. The right atrium is mildly enlarged. Interatrial and interventricular septum intact. Lipomatous Hypertrophy of the atrial septum is pre sent There is mild aortic regurgitation. There is no evidence of aortic stenosis. Mild mitral regurgitation is present. Mild tricuspid regurgitation present. There is borderline pulmonary artery hypertension. The righ t ventricular systolic pressure, as measured by Doppler, is 34.01mmHg. There is no pulmonic regurgitation present. The aortic root size is normal. IVC Not well visulized. There is no pericardial effusion. CONCLUSIONS -------- 1. Sinus rhythm. 2. This was a technically adequate study. 3. The left ventricular size is normal. 4. There is mild concentric left ventricular hypertrophy. 5. Overall left ventricular systolic function is normal with, an EF between 55 - 60 %. 6. The diastolic filling pattern is normal for the age of the patient 6.62 7. The right ventricle is moderately enlarged. 8. LA is midly dilated 29-33ml/m2. 9. The right atrium is mildly enlarged. 10. Interatrial and interventricular septum intact. 11. Lipomatous Hypertrophy of the atrial septum is present 12. There is mild aortic regurgitation. 13. There is no evidence of aortic stenosis. 14. Mild mitral regurgitation is present. 15. Mild tricuspid regurgitation present. 16. There is borderline pulmonary artery hypertension. 17. The right ventricular systolic pressure, as measured by Doppler, is 34.01mmHg. 18. There is no pulmonic regurgitation present. 19. The aortic root size is normal. 20. IVC Not well visulized. 21. There is no pericardial effusion. LANGUAGE PATH: She Mcdonough RDCS
== END | disposition home or self-care (01) ==
LOC: RADECHMAIN 11:44
PROVIDERS: ATTEND Internal Medicine Hematology & Oncology
DX: Z01.818 Encounter for other preprocedural examination (principal); I27.20 Pulmonary hypertension, unspecified; I08.3 Combined rheumatic disorders of mitral, aortic and tricuspid valves; Z88.2 Allergy status to sulfonamides
CPT/HCPCS: 93306

== ENCOUNTER → 2019-07-14 | Outpatient (CLI) | payer OTHER ==
[2019-07-14 13:18] VITALS: BP 99/55; PULSE 90; RESP 18; TEMP 98.3
--- NOTE | 2019-07-14 13:35 | P.GSHP ---
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 She had a right axillary node biopsy positive for poorly differentiated non-small cell cancer consistent with breast primary. She had a mass in her breast noted on mammogram however biopsy on 2 occasions revealed only scar and fat necrosis. She was referred for evaluation to medical oncology she was treated with neoadjuvant chemotherapy. She finished the chemotherapy May 15. Her surgery was delayed secondary to the jang virus however she has continued on Perjetta and Herceptin. The lesion was a T?N1M0ER weekly ER+Pr-Her2+G?. She had a PET scan 11-29-18 performed which was negative for metastatic disease. Genetic testing was ordered and came back showing an MSH 2. Tobacco unknown significance. An MRI of the breast was ordered to try to evaluate the primary site however the patient did not tolerate the procedure well the procedure was canceled. She had port placement in December 2018 and an ejection fraction from November 2018 showed an ejection fraction greater than 55%. She'll the parotid biopsy in November 2018 that was negative. The case was extensively discussed with medical oncology. An excisional biopsy of the mass was suggested however the patient decided to have neoadjuvant treatment and then a mastectomy. She was treated with TCHP. The patient had some diarrhea during her chemo. Secondary to the diarrhea she has some modification of her chemotherapy. At this time the patient continues to receive per data and Herceptin. She is however ready to have her surgery scheduled. Medical history: Back pain Fibromyalgia Asthma High cholesterol Eczema Family history: 1. Daughter: 11-year-old daughter of brain tumor 2. Mother: 1 cancer 3. Maternal aunt: Breast cancer 4. Paternal aunt: Breast cancer Hormonal History: Menarche: 14 , 2 miscarriages, breast-fed: No age of first : 28 Menopause: Hysterectomy completed 52 done for bleeding control pills: 40 years Hormones: Negative Surgical history: Hysterectomy complete Tonsillectomy Cholecystectomy Ectopic pregnancies and appendectomy Back surgery Wrist surgery Elbow surgery All of her teeth have been extractedSocial history: Social History: Smoke: Negative Alcohol: Social Drugs: Negative at this time has used CBD oil in the past - Constitutional Constitutional: Denies chills, Denies fever - EENT Comment: sore throats with chemotherapy Eyes: denies dry eye Ears: bilateral: tinnitus Ears, nose, mouth and throat: Reports sore throat - Breasts Breasts: bilateral: as per HPI - Cardiovascular Cardiovascular: Denies chest pain, Denies shortness of breath - Respiratory Comment: asthma Respiratory: Denies cough, Denies 7 - Gastrointestinal Gastrointestinal: Denies abdominal pain, Denies diarrhea, Denies nausea, Denies vomiting - Genitourinary (Female) Comment: UTI in the past Genitourinary: Denies dysuria, Denies hematuria - Menstruation Menstruation: Reports post hysterectomy - Musculoskeletal Comment: Fibromyalgia and arthritis - Integumentary Integumentary: Reports pruritus - Neurological Comment: numbness in feet and fingers from the chemotherapy Neurological: Reports numbness, Denies weakness - Psychiatric Psychiatric: Denies anxiety, Denies depression - Endocrine Comment: lost weight with chemotherapy Endocrine: Reports weight change, Denies fatigue - Hematologic/Lymphatic Comment: none - Allergic/Immunologic Allergic/Immunologic: Reports as per HPI Past Medical History Past Medical History: Cancer Additional Past Medical History / Comment(s): chronic neck and back pain, UTI,ECZEMA, IBS,NEUROPATHY, diverticulosis, scoliosis, polyps, bilateral carpal tunnel. Current Right Breast cancer History of Any Multi-Drug Resistant Organisms: None Reported Past Surgical History: Appendectomy, Back Surgery, Bladder Surgery, Cholecystectomy, Hysterectomy Additional Past Surgical History / Comment(s): right leg, bilateral feet, bilateral wrists for carpal tunnel, colonoscopy, bladder suspension, BACK SX(FUSION -HAD METAL IN BACK, since been removed), HX ECTOPIC . Surgery on left hand. Past Anesthesia/Blood Transfusion Reactions: Blood Transfusion Reaction Additional Past Anesthesia/Blood Transfusion Reaction / Comment(s): Patients states had a blood transfusion and woke up with red dots all over her skin and the nurse told her she had a reaction to the blood. Past Psychological History: Anxiety Smoking Status: Never smoker Past Alcohol Use History: Occasional Past Drug Use History: Marijuana - Past Family History Daughter(s) Family Medical History: Cancer Additional Family Medical History / Comment(s): Passed of a brain tumor at the age of 11 in 1990 Father Family Medical History: Congestive Heart Failure (CHF), Hyperlipidemia, Hypertension Additional Family Medical History / Comment(s): LIVED TO AGE 89, HX MALARIA Mother Family Medical History: Cancer Additional Family Medical History / Comment(s): BRAIN ANEURYSM AT AGE 56 Medications and Allergies Home Medications Medication Instructions Recorded Confirmed Type Albuterol Inhaler (Mhu) [Ventolin 1 - 2 puff INHALATION RT-QID PRN 03/30/14 03/05/19 History Hfa Inhaler (Mhu)] Cholecalciferol [Vitamin D3 (25 1,000 unit PO DAILY 03/30/14 03/05/19 History Mcg = 1000 Iu)] Cyclobenzaprine [Flexeril] 10 mg PO HS 03/30/14 03/05/19 History Multivitamins, Thera [Multivitamin 1 tab PO DAILY 03/30/14 03/05/19 History (formulary)] Fluticasone/Vilanterol [Breo 2 puff INHALATION RT-DAILY 05/10/15 03/05/19 History Ellipta 200-25 Mcg INH] Gabapentin [Neurontin] 400 mg PO QID 05/10/15 03/05/19 History HYDROcodone/APAP 10-325MG [[place] 1 tab PO QID 05/10/15 03/05/19 History 10-325] Atorvastatin [Lipitor] 20 mg PO HS 10/14/18 03/05/19 History Ascorbic Acid [Vitamin C] 1,000 mg PO DAILY 03/05/19 03/05/19 History Calcium/Magnesium/Zinc 4 tab PO DAILY 03/05/19 03/05/19 History [Qhfybiu-Ghjqcrpng-Ovio Tablet] DULoxetine HCL [Cymbalta] 60 mg PO DAILY 03/05/19 03/05/19 History Magnesium Oxide 400 mg PO DAILY 03/05/19 03/05/19 History Nystatin 1 applic TOPICAL TID PRN 03/05/19 03/05/19 History Omeprazole [PriLOSEC] 20 mg PO BID 03/05/19 03/05/19 History Ondansetron [Zofran ODT] 4 mg PO Q6H PRN 03/05/19 03/05/19 History Prochlorperazine [Compazine] 10 mg PO Q6H PRN 03/05/19 03/05/19 History Temazepam [Restoril] 15 mg PO HS PRN 03/05/19 03/05/19 History Valsartan/Hydrochlorothiazide 1 tab PO DAILY 03/05/19 03/05/19 History [Valsartan-Hctz 320-25 mg Tab] Vitamin E 1,000 unit PO DAILY 03/05/19 03/05/19 History Allergies Allergy/AdvReac Type Severity Reaction Status Date / Time lactase [From Dairy Aid] Allergy Swelling Verified 03/05/19 00:05 latex Allergy Rash/Hives Verified 03/05/19 00:05 Latex, Natural Rubber Allergy Rash/Hives Verified 03/05/19 00:05 Sulfa (Sulfonamide Allergy Swelling Verified 03/05/19 00:05 Antibiotics) pollen extracts AdvReac Intermediate Rhinitis Verified 03/05/19 00:05 egg AdvReac Nausea & Verified 03/05/19 00:05 Vomiting & Diarrhea Milk Containing Products AdvReac Nausea & Verified 03/05/19 00:05 Vomiting & Diarrhea wheat AdvReac Nausea & Verified 03/05/19 00:05 Vomiting & Diarrhea Surgical - Exam BMI 38.9 - General obese - Eyes normal ocular movement - ENT no hearing loss - Neck no masses, trachea midline, no lymphadectomy - Respiratory normal respiratory effort, clear to auscultation - Cardiovascular Rhythm: regular Heart Sounds: normal: S1, S2 - Abdomen normal bowel sounds Abdomen: soft, non tender, no guarding, no rigid, no rebound - Integumentary normal turgor port right chest wall - Neurologic no disoriented, no combative - Musculoskeletal normal gait - Psychiatric oriented to time, oriented to person, oriented to place, speech is normal, memory intact breast exam: BRA 46D inspection: no nipple involvement, grade 3 ptosis Right breast: Larger than the left breast approximately 1-1/2 times, multiple positional exam fibrocystic changes no dominant mass or nodule of concern is palpated on today's exam Right axilla: No adenopathy of concern Left breast: Multiple position exam no dominant masses or nodules of concern, fibrocystic changes Left axilla: No adenopathy of concern Results pathology results reviewed Assessment and Plan Assessment: Impression: 1. Stage IIA breast cancer 2. Back pain related to macromastia 3. Patient has completed neoadjuvant chemotherapy 4. Genetic testing with lesion of unknown significance 5. Fibromyalgia 6. Arthritis Plan: 1. Bilateral mastectomy, right sentinel node, right needle localization of positive node, right completion axillary dissection 2. Medical clearance 3. Clearance from Dr. Gonzalez 4. Confirm with Dr. Gonzalez no evidence of metastatic disease At the long discussion with the patient and her regarding surgical options. The patient did not have a positive diagnosis of cancer in the right breast prior to her chemotherapy. However we believe that the positive lymph node in the axilla was from a breast primary. The patient was given the option of watchful waiting of the right breast. She could have a needle local excisional lumpectomy of the presumed mass which was previously biopsied but negative for cancer, or she could have a mastectomy. The patient and her wish for her to have a mastectomy. They understand that there may not be any cancer in the specimen. The patient also wishes to have the left breast removed for symmetry. The patient will have a sentinel node biopsy, needle localization of the positive node in the right axilla to assure that this is resected, and a probable completion axillary dissection. Risks and benefits include bleeding infection reaction to the anesthetic. They include possible lymphedema and numbness of the upper arm. They also include possible injury to the thoracodorsal recurrent laryngeal nerve. They also include seroma. Her and she understand and they wish to proceed. CC: Dr Sanderson encounter 60 minutes greatere than 50% of time in planning and counselling
== END ==
LOC: WWCWWP 11:24
PROVIDERS: ATTEND Surgery
DX: Z53.9 Procedure and treatment not carried out, unspecified reason (principal)

== ENCOUNTER → 2019-07-15 | Outpatient (CLI) | payer OTHER ==
[2019-07-15 12:01] LABS: Partial Thromboplastin Time 23.9 sec (22.0-30.0); Prothrombin Time 10.2 sec (9.0-12.0)
[2019-07-15 12:43] LABS: Anisocytosis Slight; Basophils % (A) 1 %; Eosinophils # (A) 0.4 k/uL (0-0.7); Eosinophils % (A) 12 %; HCT 30.2 % (34.0-46.0); HGB 9.7 gm/dL (11.4-16.0); Hypochromasia Moderate; Lymphocytes # (A) 1.3 k/uL (1.0-4.8); Lymphocytes % (A) 43 %; MCH 31.8 pg (25.0-35.0); MCHC 32.2 g/dL (31.0-37.0); MCV 98.8 fL (80.0-100.0); Macrocytosis Slight; Mean Platelet Volume 7.1; Monocytes # (A) 0.2 k/uL (0-1.0); Monocytes % (A) 7 %; Neutrophils # (A) 1.1 k/uL (1.3-7.7); Neutrophils % (A) 35 %; Platelet Count 262 k/uL (150-450); RBC 3.06 m/uL (3.80-5.40); RDW 17.1 % (11.5-15.5)
[2019-07-15 13:05] LABS: Appearance,Urine Clear (Clear); Bacteria,Urine Rare /hpf; Bilirubin,Urine Negative (Negative); Blood,Urine Negative (Negative); Color,Urine Yellow; Glucose,Urine (UA) Negative (Negative); Hyaline Casts,Urine 17 /lpf (0-2); Ketones,Urine Negative (Negative); Leukocyte Esterase,Urine Large (Negative); Mucus,Urine Rare /hpf; Nitrite,Urine Negative (Negative); Protein,Urine Trace (Negative); RBC,Urine 1 /hpf (0-5); Specific Gravity,Urine 1.018 (1.001-1.035); Squamous Epithelial Cell,Urine 1 /hpf (0-4); Urobilinogen,Urine <2.0 mg/dL (<2.0); WBC,Urine 10 /hpf (0-5)
[2019-07-15 18:38] LABS: African American GFR (CKD) 88.4 (60.0-200.0); Albumin/Globulin Ratio 1.6 (1.60-3.17); Anion Gap 9.2 mmol/L (4.00-12.00); BUN/Creat Ratio 17.5 Ratio (12.00-20.00); Calcium 9.4 mg/dL (8.7-10.3); Carbon Dioxide 28.8 mmol/L (21.6-31.8); Globulin 2.5 g/dL (1.6-3.3); Non-African American GFR(CKD) 76.3 (60.0-200.0); Potassium 3.4 mmol/L (3.5-5.5); Total Bilirubin 0.3 mg/dL (0.2-1.2); Total Protein 6.5 g/dL (6.2-8.2)
== END | disposition home or self-care (01) ==
LOC: LABWHC1 11:16
PROVIDERS: ATTEND Family Medicine
DX: Z01.818 Encounter for other preprocedural examination (principal)
CPT/HCPCS: 36415; 80053; 81001; 85025; 85610; 85730; 87070

== ENCOUNTER → 2019-07-26 | Outpatient (CLI) | payer OTHER | END | disposition home or self-care (01) | LOC: LABWHC1 07:14 | PROVIDERS: ATTEND Surgery | DX: U07.1 COVID-19 (principal) | CPT/HCPCS: 87635 ==

== ENCOUNTER 2019-07-28 07:31 | Observation (INO) | payer MEDICARE, OTHER ==
[2019-07-27 11:02] VITALS: BMI 35.4
[~2019-07-28 07:31] MED LIST: DEXAMETHASONE SOD PHOSPHATE 10 MG/ML 1 ML VIAL IV ONE; HEPARIN SODIUM,PORCINE 5,000 UNIT/ML 1 ML VIAL SQ ONE; HYDROmorphone 0.5 MG/0.5 ML SYRINGE IVP PRN; LIDOCAINE 1% (10MG/ML) FOR IV START INTRADERMA PRN; ONDANSETRON 4 MG/2 ML VIAL IVP ONE; Pre Op ABX Message 1 EACH MISC MISCELLANE ONE; SCOPOLAMINE 1.5MG/72HR PATCH TRANSDERM ONE
[2019-07-28] MEDS: LACTATED RINGERS 1,000 ML IV SCH (08:04)
[2019-07-28] MEDS ORDERED: ALPRAZolam 0.25 MG TAB PO ONE (08:05)
[2019-07-28 08:32] LABS: African American GFR (CKD) >90 (>60 ml/min/1.73 sqM); Anion Gap 11 mmol/L; Blood Urea Nitrogen 13 mg/dL (7-17); Calcium 9.5 mg/dL (8.4-10.2); Carbon Dioxide 27 mmol/L (22-30); Chloride 100 mmol/L (98-107); Glucose 96 mg/dL (74-99); Non-African American GFR(CKD) >90 (>60 ml/min/1.73 sqM); Potassium 3.7 mmol/L (3.5-5.1); Sodium 138 mmol/L (137-145)
[2019-07-28] MEDS ORDERED: LIDOCAINE 1% INJ 10MG/ML (20 ML MDV) SQ ONE (08:52)
[2019-07-28] MEDS ORDERED: NEOSTIGMINE 1 MG/ML 10 ML VIAL ONE (09:30)
[2019-07-28] MEDS ORDERED: GLYCOPYRROLATE 0.2 MG/ML 2 ML VIAL ONE (09:30)
[2019-07-28] MEDS ORDERED: PROPOFOL 10 MG/ML 20 ML VIAL IV ONE (09:30)
[2019-07-28] MEDS ORDERED: fentaNYL (PF) 50 MCG/ML 2 ML AMP ONE (09:30)
[2019-07-28] MEDS ORDERED: ROCURONIUM BROMIDE 10 MG/ML 5 ML VIAL IV ONE (09:30)
[2019-07-28] MEDS ORDERED: ePHEDrine SULFATE/0.9% NACL/PF 50 MG/5 ML SYRINGE IV ONE (09:30)
[2019-07-28] MEDS ORDERED: SUCCINYLCHOLINE CHLORIDE 100 MG/5 ML SYR IV ONE (09:30)
[2019-07-28] MEDS ORDERED: LIDOCAINE 1% INJ 10MG/ML (20 ML MDV) ONE (09:30)
[2019-07-28] MEDS ORDERED: PHENYLEPHRINE-0.9% NACL SYG 1 MG/10 ML SYRINGE ONE (09:30)
[2019-07-28] MEDS ORDERED: MIDAZOLAM 2 MG/2 ML VIAL ONE (09:30)
--- NOTE | 2019-07-28 09:43 | NM ---
EXAMINATION TYPE: NM sentinel node injection DATE OF EXAM: 07/28/2019 COMPARISON: NONE HISTORY: Right-sided breast cancer. TECHNIQUE AND FINDINGS: The procedure of sentinel lymph node injection was explained to the patient. The benefits, alternatives, and risks were discussed. An informed consent was then obtained. Overlying skin is cleaned with sterile alcohol. Following this, 547 uCi Tc99m Tilmanocept was inject ed in the upper outer aspect of the right nipple intradermally. The patient tolerated the procedure well without any immediate complication. The patient was kept in the radiology department for short stay after the procedure and then taken to surgery for surgical p rocedure what is presumed intraoperative gamma probe will be used for sentinel lymph node detection. IMPRESSION: Right breast radiotracer injection for sentinel node localization as above.
--- NOTE | 2019-07-28 09:50 | P.NAPBC ---
[facility] Queries - [facility] Queries Was patient's case review presented at [facility] tumor board? If no, comment.: Yes Was patient's pathology reviewed at [facility]? If no, comment.: Yes Was breast conservation surgery offered? If no, comment.: Yes (discussed no primary noted, did not have an open iopsy and therefore opted ) Was sentinel node biopsy offered? If no, comment.: Yes Was diagnosis confirmed by percutaneous core biopsy? If no, comment.: Yes Is patient mastectomy patient?: Yes Was a preop referral to reconstructive surgeon offered?: Yes [facility] Comments: T?N1M0ER+IA-Hers+G? Stage II Clinical Stage: stage II
[2019-07-28] MEDS ORDERED: LACTATED RINGERS 1,000 ML IV ONE (11:13)
--- NOTE | 2019-07-28 12:46 | USB ---
EXAM: Needle localization with wire placement. CLINICAL HISTORY: Right-sided breast cancer TECHNIQUE: Needle localization with wire placement and surgical excision of area of concern in the right breast. COMPARISON: Prior ultrasound-guided biopsy November 12, 2018. Prior PET/CT November 29, 2018. FINDINGS: The procedure of needle localization with wire placement and than surgical excision was explained to the patient. Benefits, alternatives, and risks were discussed. An informed consent was then obtained. Case discussed with surgeon. Axillary lymph nodes node with biopsy clip is what is desired to be targeted. The overlying skin was prepped and draped in usual sterile fashion. Lidocaine is used as anesthetic into the skin and subcutaneous tissue up to the level of area of concern. A 5 cm needle was used. It was placed via ultrasound guidance. 2 adjacent needles placed through the lymph node. At this point, wire was placed and the needle was withdrawn. The wires were fixed to patient's skin. Images were marked for surgeon. The patient tolerated the procedure well without any immediate complication. The patient was kept in the radiology department for short stay after the procedure and then taken to surgery for surgical excision. Targeted lymph nodes one with hydromark biopsy clip and wire are identified in specimen mammogram. The patient was kept in hospital for short stay after the procedure and then discharged home in stable condition. IMPRESSION: Successful, uncomplicated needle localization with wire placement and surgical excision of targeted lymph node in the right breast, full pathology results to follow. Pathology Results: Malignant A. RIGHT BREAST, MAMMOGRAPHICALLY ORIENTED LUMPECTOMY: Six lymph nodes negative for lymph node metastases. Fibrous scarring, histiocytic aggregates and granulomatous reaction possibly related to prior lymph node metastases with pathologic complete response in two of six nodes. Appropriately controlled immunoperoxidase studies for Cam 5.2, Cytokeratin 7 and BUNNY are negative for carcinoma in blocks A4 and A5. B. RIGHT AXILLARY CONTENTS, REGIONAL DISSECTION: Nine axillary lymph nodes: Negative for metastatic adenocarcinoma. C. RIGHT BREAST, SIMPLE MASTECTOMY: Benign nipple areola complex and breast parenchyma. Negative for adenocarcinoma. D. LEFT BREAST TISSUE, SIMPLE MASTECTOMY: Benign fibrofatty breast parenchyma and nipple, negative for residual/recurrent adenocarcinoma. E. RIGHT BREAST AXILLARY CONTENTS, REGIONAL DISSECTION: Benign fat with occasional benign ductal structures. Negative for lymph nodes or adenocarcinoma.. Recommendation Appropriate oncologic follow up, had bilateral mastectomy. MTDD
[2019-07-28] MEDS ORDERED: HYDROmorphone 1 MG/ML 1 ML SYRINGE IVP PRN (13:53)
[2019-07-28] MEDS ORDERED: NALOXONE 0.4 MG/ML 1 ML VIAL IV PRN (13:53)
[2019-07-28] MEDS ORDERED: ONDANSETRON 4 MG/2 ML VIAL IVP PRN (13:53)
--- NOTE | 2019-07-28 13:53 | P.OP ---
Date of Procedure: 07/28/19 Preoperative Diagnosis: Stage II right breast cancer Postoperative Diagnosis: Same Procedure(s) Performed: Right mastectomy with sentinel node biopsy, axillary node dissection, left mastectomy Anesthesia: KANA Surgeon: Jocelynn Hendrickson Estimated Blood Loss (ml): 30 Pathology: other (Bilateral breast, right axillary dissection) Condition: stable Disposition: floor Indications for Procedure: Right breast stage II cancer, status post neoadjuvant chemotherapy Operative Findings: Fibrocystic breast changes, right axillary adenopathy Description of Procedure: Teagan is a 68-year-old white female diagnosed with a right breast stage II cancer. The cancer was diagnosed in her right axillary node and the primary was not noted in the breast preoperatively. She underwent neoadjuvant chemotherapy and determined that she wanted bilateral mastectomies. She was given the opportunity to have reconstruction but was not interested. The right breast was approached initially. Superior and inferior skin flaps were developed and carried down from the skin to the pectoralis major muscle. Dissection was performed from medial to lateral being careful to maintain hemostasis using the Harmonic scalpel and electrocautery device on the pectoralis major muscle. Dissection was performed laterally to the pectoralis major muscle where it was then dissected down to the pectoralis minor muscle. The localization of the lymph node which had been biopsied preoperative had been done and this area was excised. Radiograph revealed that the node with the clip and it had been removed. Following this secondary to palpable adenopathy in the axilla for axillary dissection was performed. This included the superficial and deep lymph nodes. The pectoralis minor muscle was followed to the axillary vein. The tissues were swept inferiorly being careful to identify and preserve the thoracodorsal long thoracic and intercostal brachial nerves. The wound was well irrigated. After assured that hemostasis was attained 2 GAYATRI drains were placed. These were secured using nylon suture. The incision was closed using a 3-0 Vicryl suture followed by jose. The left breast was approached. Superior and inferior skin flaps were drawn and then developed. These were carried down to the pectoralis major muscle. The breast was dissected from medial to lateral being careful to maintain hemostasis using the electrocautery device. 2 GAYATRI drains were placed and secured using a nylon suture. The skin was closed using 3-0 Vicryl suture. This was followed by jose. The patient tolerated the procedure in stable condition. A sterile dressing was applied. All instrument and sponge counts were correct at the end of the case.
[2019-07-28] MEDS ORDERED: ONDANSETRON 4 MG/2 ML VIAL IVP ONE (14:28)
[2019-07-28] MEDS ORDERED: HYDROmorphone 1 MG/ML 1 ML SYRINGE IVP ONE ×2 (14:30→14:35)
[2019-07-28 14:52] VITALS: RESP 18
[2019-07-28] MEDS: SODIUM CHLORIDE 0.45% 1,000 ML IV SCH (15:40)
[2019-07-28] MEDS: HEPARIN SODIUM,PORCINE 5,000 UNIT/ML 1 ML VIAL SQ SCH (15:50)
[2019-07-28] MEDS: HYDROcodone/APAP 5-325MG 1 EACH TAB PO PRN (19:25)
[2019-07-28] MEDS ORDERED: GABAPENTIN 400 MG CAP PO STA (22:53)
[2019-07-28] MEDS ORDERED: HYDROCHLOROTHIAZIDE 25 MG TAB PO SCH ×3 (23:00)
[2019-07-28] MEDS ORDERED: VALSARTAN 160 MG TAB PO SCH ×2 (23:00)
[2019-07-28] MEDS: ATORVASTATIN 20 MG TAB PO SCH (23:58)
[2019-07-28] MEDS: CYCLOBENZAPRINE 10 MG TAB PO SCH (23:59)
[2019-07-28] MEDS: GABAPENTIN 400 MG CAP PO SCH (23:59)
[2019-07-29] MEDS: HEPARIN SODIUM,PORCINE 5,000 UNIT/ML 1 ML VIAL SQ SCH ×4 (00:01→23:40)
[2019-07-29] MEDS: HYDROcodone/APAP 5-325MG 1 EACH TAB PO PRN ×5 (00:35→20:11)
[2019-07-29] MEDS: VALSARTAN 160 MG TAB PO SCH ×2 (00:38→10:40)
--- NOTE | 2019-07-29 01:59 | P.CONS ---
History of Present Illness - Reason for Consult Consult date: 07/28/19 Medical management - Chief Complaint Breast cancer status post bilateral mastectomy - History of Present Illness Patient is a 68-year-old female with a known history of breast cancer diagnosed in August 2018 on the right side, status post chemotherapy completed in April 2019, fibromyalgia, chronic neck and back pain, IBS, peripheral neuropathy, diet-controlled diabetes and multiple other medical problems was admitted to hospital for elective bilateral mastectomy. Patient underwent Right mastectomy with sentinel node biopsy, axillary node dissection, left mastectomy. Currently patient is sitting in the chair comfortably. Pain is 4 out of 10 in severity. No complaints of nausea vomiting or abdominal pain or diarrhea. Patient wants to start back on her Neurontin and other home medications. Laboratory data reviewed. Postoperatively blood pressure is slightly elevated. Otherwise patient denied any complaints of chest pain or shortness of breath. No headache or dizziness or lightheadedness. Review of Systems Constitutional: Patient denies any fever or chills . No generalized weakness or weight loss. Abdomen: Patient denied nausea vomiting and diarrhea and abdominal pain. Cardiovascular: Patient denies any chest pain or short of breath no palpitations. Respiratory: patient denied any cough is from production. No shortness of breath Neurologic: Patient denied any numbness or tingling. Patient does have dizziness and headache and ringing ears. Musculoskeletal: Patient denies any complaints of joint swelling or deformity. Skin: Negative Psychiatric: Negative Endocrine: No heat or cold intolerance. No recent weight gain. Genitourinary: No dysuria or hematuria. All other 14 point ROS negative except the above Past Medical History Past Medical History: Cancer Additional Past Medical History / Comment(s): chronic neck and back pain, ,ECZE MA, IBS,NEUROPATHY, diverticulosis, scoliosis, polyps, . Current Right Breast cancer including lymph nodes-LAST CHEMO 07/21/19. HAS CURRENT BILAT EYE INFECTION POST CHEMO ON ANTIBIOTIC EYE DROPS. N/T TO BILAT FEET AND HANDS History of Any Multi-Drug Resistant Organisms: None Reported Past Surgical History: Appendectomy, Back Surgery, Bladder Surgery, Cholecystectomy, Hysterectomy, Orthopedic Surgery Additional Past Surgical History / Comment(s): right leg, bilateral feet, bilateral wrists for carpal tunnel, colonoscopy, bladder suspension, BACK SX(FUSION -HAD METAL IN BACK, since been removed), HX ECTOPIC . Surgery on left hand. PORT A CATH INSERTION Past Anesthesia/Blood Transfusion Reactions: Blood Transfusion Reaction Additional Past Anesthesia/Blood Transfusion Reaction / Comm: Patients states had a blood transfusion and woke up with red dots all over her skin and the nurse told her she had a reaction to the blood. Past Psychological History: Anxiety Additional Psychological History / Comment(s): PT 'S DAUGHTER AT AGE 9 FROM BRAIN TUMOR (1990) Smoking Status: Never smoker Past Alcohol Use History: Occasional Past Drug Use History: Marijuana Additional Drug Use History / Comment(s): Rarely - Past Family History Daughter(s) Family Medical History: Cancer Additional Family Medical History / Comment(s): Passed of a brain tumor at the age of 11 in 1990 Father Family Medical History: Congestive Heart Failure (CHF), Hyperlipidemia, Hypertension Additional Family Medical History / Comment(s): LIVED TO AGE 89, HX MALARIA Mother Family Medical History: Cancer Additional Family Medical History / Comment(s): BRAIN ANEURYSM AT AGE 56 Medications and Allergies Home Medications Medication Instructions Recorded Confirmed Type Albuterol Inhaler (Mhu) [Ventolin 1 - 2 puff INHALATION RT-QID PRN 03/30/14 07/28/19 History Hfa Inhaler (Mhu)] Cyclobenzaprine [Flexeril] 10 mg PO HS 03/30/14 07/28/19 History Fluticasone/Vilanterol [Breo 2 puff INHALATION RT-DAILY 05/10/15 07/28/19 History Ellipta 200-25 Mcg INH] Gabapentin [Neurontin] 400 mg PO QID 05/10/15 07/28/19 History HYDROcodone/APAP 10-325MG [[place] 1 tab PO QID 05/10/15 07/28/19 History 10-325] Atorvastatin [Lipitor] 20 mg PO HS 10/14/18 07/28/19 History DULoxetine HCL [Cymbalta] 60 mg PO DAILY 03/05/19 07/28/19 History Valsartan/Hydrochlorothiazide 1 tab PO HS 03/05/19 07/28/19 History [Valsartan-Hctz 320-25 mg Tab] Potassium Chloride [Klor-Con 20] 20 meq PO DAILY 07/14/19 07/28/19 History Budesonide [Pulmicort Flexhaler] 2 puff INHALATION DAILY 07/27/19 07/28/19 History DULoxetine HCL [Cymbalta] 30 mg PO DAILY 07/27/19 07/28/19 History Tobramycin/Dexamethasone [Tobradex 1 drop LEFT EYE DAILY 07/27/19 07/28/19 History Ophth Susp] Tobramycin/Dexamethasone [Tobradex 2 drop RIGHT EYE BID 07/27/19 07/28/19 History Ophth Susp] Allergies Allergy/AdvReac Type Severity Reaction Status Date / Time lactase [From Dairy Aid] Allergy Swelling Verified 07/28/19 07:54 latex Allergy Rash/Hives Verified 07/28/19 07:54 Latex, Natural Rubber Allergy Rash/Hives Verified 07/28/19 07:54 Sulfa (Sulfonamide Allergy Swelling Verified 07/28/19 07:54 Antibiotics) pollen extracts AdvReac Intermediate Rhinitis Verified 07/28/19 07:54 egg AdvReac Nausea & Verified 07/28/19 07:54 Vomiting & Diarrhea Milk Containing Products AdvReac Nausea & Verified 07/28/19 07:54 Vomiting & Diarrhea wheat AdvReac Nausea & Verified 07/28/19 07:54 Vomiting & Diarrhea Physical Exam Vitals: Vital Signs Temp Pulse Pulse Pulse Pulse Resp BP 07/28/19 16:00 95 07/28/19 15:30 86 07/28/19 15:15 98.6 F 81 18 07/28/19 14:40 84 18 07/28/19 14:25 85 16 07/28/19 14:10 80 18 07/28/19 13:56 98.1 F 79 14 07/28/19 09:10 68 127/73 07/28/19 08:38 98.5 F 76 16 165/75 07/28/19 07:51 97.3 F L 84 18 BP BP Pulse Ox 07/28/19 16:00 143/69 91 L 07/28/19 15:30 143/82 91 L 07/28/19 15:15 137/77 93 L 07/28/19 14:40 136/61 07/28/19 14:25 158/70 94 L 07/28/19 14:10 140/63 95 07/28/19 13:56 130/87 96 07/28/19 09:10 07/28/19 08:38 07/28/19 07:51 169/72 95 Intake and Output 07/28/19 07/28/19 07/28/19 06:59 14:59 22:59 Intake Total 1750 Output Total 280 Balance 1470 Intake: IV 1750 Output: Urine 250 Estimated Blood Loss 30 Other: # Voids 1 Weight 90.6 kg PHYSICAL EXAMINATION: Patient is lying in the bed comfortably, no acute distress, awake alert and oriented.. HEENT: Normocephalic. Neck is supple. Pupils reactive. Nostrils clear. Oral cavity is moist. Ears reveal no drainage. Neck reveals no JVD, carotid bruits, or thyromegaly. CHEST EXAMINATION: Trachea is central. Symmetrical expansion. Lung munoz clear to auscultation and percussion. Bilateral mastectomy surgical site is bandaged. CARDIAC: Normal S1, S2 with no gallops. No murmurs ABDOMEN: Soft. Bowel sounds normal. No organomegaly. No abdominal bruits. Extremities: reveal no edema. No clubbing or cyanosis Neurologically awake, alert, oriented x3 with well-coordinated movements. No focal deficits noted Skin: No rash or skin lesions. Psychiatric: Coperative. Nonsuicidal Musculoskeletal: No joint swelling or deformity. Normal range of motion. Results CBC & Chem 7: 07/28/19 08:03 Assessment and Plan Assessment: Right breast cancer status post chemotherapy. Last on 07/21/2019 Status post right mastectomy with sentinel node biopsy and left mastectomy postoperative day 0 Chronic neck and back pain Hypertension blood pressure slightly elevated Eczema IBS Bilateral peripheral neuropathy Diet controlled diabetes Anxiety DVT prophylaxis with heparin subcu and early ambulation History of marijuana use Plan: Patient will be continued on IV hydration and pain management. Continue with Neurontin and Flexeril. Continue with valsartan and hold hydrochlorothiazide in the hospital. Otherwise continue current management and follow-up closely. Encourage incentive spirometry and ambulation. Further recommendations based on clinical course. Monitor H&H. Thank you for your consult.
[2019-07-29] MEDS: SODIUM CHLORIDE 0.45% 1,000 ML IV SCH ×2 (04:08→10:02)
[2019-07-29 06:51] LABS: Anisocytosis Slight; Basophils % (A) 0 %; Eosinophils % (A) 0 %; HCT 29.1 % (34.0-46.0); HGB 8.9 gm/dL (11.4-16.0); Hypochromasia Moderate; Lymphocytes % (A) 19 %; MCH 29.5 pg (25.0-35.0); MCHC 30.5 g/dL (31.0-37.0); MCV 96.9 fL (80.0-100.0); Mean Platelet Volume 7.5; Monocytes # (A) 0.2 k/uL (0-1.0); Monocytes % (A) 4 %; Neutrophils # (A) 4.1 k/uL (1.3-7.7); Neutrophils % (A) 75 %; Platelet Count 220 k/uL (150-450); RBC 3.01 m/uL (3.80-5.40); RDW 16.9 % (11.5-15.5); WBC 5.4 k/uL (3.8-10.6)
[2019-07-29] MEDS: LACTATED RINGERS 1,000 ML IV SCH (07:12)
--- NOTE | 2019-07-29 09:36 | P.PN ---
Subjective Progress Note Date: 07/29/19 Principal diagnosis: Bilateral mastectomies with right axillary node dissection; postop day #1 Lorraine is a 68-year-old white female status post bilateral mastectomies with a right axillary node dissection. She is done well and is tolerating a diet at this time. GAYATRI drainage is serous in nature.GAYATRI drains on the right 40 and 50 mL serous in nature; GAYATRI drains on the left 40 and 10 mL serous in nature. Her hemoglobin is 8.9, the last hemoglobin reported was 9.7 preoperative. Her dressing was changed there is no evidence of any hematomas and the JPs are all holding suction without difficulty. Objective - Vital Signs Vital signs: Vital Signs Temp 98.5 F 07/29/19 05:26 Pulse 85 07/29/19 05:26 Resp 18 07/29/19 05:26 BP 112/66 07/29/19 05:26 Pulse Ox 94 L 07/29/19 05:26 Intake & Output 07/28/19 07/29/19 07/29/19 18:59 06:59 18:59 Intake Total 1750 700 Output Total 280 140 Balance 1470 560 Weight 90.6 kg Intake: IV 1750 Oral 700 Output: Drainage 140 Left Lower Chest 40 Left Upper Chest 10 Lower 40 Right Upper 50 Urine 250 Estimated Blood Loss 30 Other: # Voids 1 2 - Constitutional General appearance: Present: obese - EENT Eyes: Present: EOMI ENT: Present: hearing grossly normal - Respiratory Respiratory: bilateral: CTA - Cardiovascular Heart sounds: normal: S1, S2 - Integumentary Integumentary Comment(s): Incisions clean and dry bilateral GAYATRI drains serous in nature with no evidence of active bleeding No evidence of hematoma - Psychiatric Psychiatric: Present: A&O x's 3, appropriate affect, intact judgment & insight - Labs CBC & Chem 7: 07/29/19 06:14 07/28/19 08:03 Labs: Abnormal Lab Results - Last 24 Hours (Table) 07/29/19 Range/Units 06:14 RBC 3.01 L (3.80-5.40) m/uL Hgb 8.9 L (11.4-16.0) gm/dL Hct 29.1 L (34.0-46.0) % MCHC 30.5 L (31.0-37.0) g/dL RDW 16.9 H (11.5-15.5) % Assessment and Plan Assessment: Impression: 1. Patient postop day #1 bilateral mastectomy with right axillary node dissection 2. Hemoglobin 8.9/it was 9.7 preop 3. GAYATRI drainage is serous in nature from all drains 4. No evidence of hematoma Plan: 1. Repeat CBC today showed hemoglobin is stable 2. Probable DC home later this afternoon 3. Follow-up with Dr. Tinajero in 1 week
[2019-07-29] MEDS: GABAPENTIN 400 MG CAP PO SCH ×4 (09:54→21:41)
[2019-07-29] MEDS: DULoxetine HCL 60 MG CAPSULE.DR PO SCH (10:40)
[2019-07-29] MEDS: DULoxetine HCL 30 MG CAPSULE.DR PO SCH (10:40)
[2019-07-29] MEDS: TOBRA-DEXAMET 0.3-0.1% OPHTH DROPS 2.5 ML BTL RIGHT EYE SCH ×2 (10:42→20:07)
[2019-07-29] MEDS: TOBRA-DEXAMET 0.3-0.1% OPHTH DROPS 2.5 ML BTL LEFT EYE SCH (10:43)
[2019-07-29 11:58] LABS: Anisocytosis Slight; Basophils % (A) 0 %; Eosinophils % (A) 0 %; HCT 26.7 % (34.0-46.0); HGB 8.4 gm/dL (11.4-16.0); Hypochromasia Moderate; Lymphocytes # (A) 1.2 k/uL (1.0-4.8); Lymphocytes % (A) 26 %; MCH 30.4 pg (25.0-35.0); MCHC 31.5 g/dL (31.0-37.0); MCV 96.5 fL (80.0-100.0); Mean Platelet Volume 7.5; Monocytes # (A) 0.2 k/uL (0-1.0); Monocytes % (A) 5 %; Neutrophils % (A) 66 %; Platelet Count 216 k/uL (150-450); RBC 2.77 m/uL (3.80-5.40); WBC 4.5 k/uL (3.8-10.6)
[2019-07-29 18:22] LABS: Anisocytosis Slight; Basophils % (A) 0 %; Eosinophils % (A) 0 %; HCT 27.6 % (34.0-46.0); HGB 8.5 gm/dL (11.4-16.0); Hypochromasia Slight; Lymphocytes # (A) 1.5 k/uL (1.0-4.8); Lymphocytes % (A) 29 %; MCHC 30.8 g/dL (31.0-37.0); MCV 97.2 fL (80.0-100.0); Macrocytosis Slight; Mean Platelet Volume 7.9; Monocytes # (A) 0.3 k/uL (0-1.0); Monocytes % (A) 6 %; Neutrophils # (A) 3.3 k/uL (1.3-7.7); Neutrophils % (A) 64 %; Platelet Count 214 k/uL (150-450); RBC 2.84 m/uL (3.80-5.40); WBC 5.2 k/uL (3.8-10.6)
[2019-07-29] MEDS: CYCLOBENZAPRINE 10 MG TAB PO SCH (20:07)
[2019-07-29] MEDS: ATORVASTATIN 20 MG TAB PO SCH (20:07)
[2019-07-30] MEDS: HYDROcodone/APAP 5-325MG 1 EACH TAB PO PRN ×2 (02:18→09:05)
[2019-07-30 06:52] LABS: Anisocytosis Slight; Basophils % (A) 0 %; Eosinophils % (A) 1 %; HCT 26.3 % (34.0-46.0); HGB 8.1 gm/dL (11.4-16.0); Hypochromasia Moderate; Lymphocytes # (A) 1.6 k/uL (1.0-4.8); Lymphocytes % (A) 40 %; MCH 30.2 pg (25.0-35.0); MCHC 30.8 g/dL (31.0-37.0); MCV 98.2 fL (80.0-100.0); Macrocytosis Slight; Monocytes # (A) 0.2 k/uL (0-1.0); Monocytes % (A) 4 %; Neutrophils % (A) 52 %; Platelet Count 178 k/uL (150-450); RBC 2.67 m/uL (3.80-5.40); RDW 16.8 % (11.5-15.5); WBC 3.9 k/uL (3.8-10.6)
[2019-07-30] MEDS: GABAPENTIN 400 MG CAP PO SCH ×2 (08:28→13:22)
[2019-07-30] MEDS: DULoxetine HCL 30 MG CAPSULE.DR PO SCH (08:28)
[2019-07-30] MEDS: DULoxetine HCL 60 MG CAPSULE.DR PO SCH (08:28)
[2019-07-30] MEDS: HEPARIN SODIUM,PORCINE 5,000 UNIT/ML 1 ML VIAL SQ SCH (08:29)
[2019-07-30] MEDS: VALSARTAN 160 MG TAB PO SCH (08:29)
[2019-07-30] MEDS: TOBRA-DEXAMET 0.3-0.1% OPHTH DROPS 2.5 ML BTL LEFT EYE SCH (08:30)
[2019-07-30] MEDS: TOBRA-DEXAMET 0.3-0.1% OPHTH DROPS 2.5 ML BTL RIGHT EYE SCH (08:30)
--- NOTE | 2019-07-30 10:31 | P.PN ---
Subjective Progress Note Date: 07/29/19 Principal diagnosis: status post bilateral mastectomy. Patient is a 68-year-old female with a known history of breast cancer diagnosed in August 2018 on the right side, status post chemotherapy completed in April 2019, fibromyalgia, chronic neck and back pain, IBS, peripheral neuropathy, diet-controlled diabetes and multiple other medical problems was admitted to hospital for elective bilateral mastectomy. Patient underwent Right mastectomy with sentinel node biopsy, axillary node dissection, left mastectomy. Currently patient is sitting in the chair comfortably. Pain is 4 out of 10 in severity. No complaints of nausea vomiting or abdominal pain or diarrhea. Patient wants to start back on her Neurontin and other home medications. Laboratory data reviewed. Postoperatively blood pressure is slightly elevated. Otherwise patient denied any complaints of chest pain or shortness of breath. No headache or dizziness or lightheadedness. 07/29/2019 Patient is status post Bilateral mastectomies with right axillary node dissection; postop day #1 Patient does have GAYATRI drain in place with serous discharge. Hemoglobin is at 8.9 this morning. Baseline hemoglobin around 9.7-10. Repeat hemoglobin is 8.4. No evidence of hematoma as per Cerner surgery. Monitor his and his. Otherwise patient denied any complaints of chest pain or shortness of breath. Pain is well controlled. No nausea vomiting or abdominal pain or diarrhea. tolerating oral diet. Current medications reviewed. Objective - Vital Signs Vital signs: Vital Signs Temp 98.8 F 07/29/19 11:20 Pulse 78 07/29/19 11:20 Resp 18 07/29/19 11:20 BP 142/66 07/29/19 11:20 Pulse Ox 96 07/29/19 11:20 Intake & Output 07/28/19 07/29/19 07/29/19 18:59 06:59 18:59 Intake Total 1750 700 Output Total 280 140 160 Balance 1470 560 -160 Weight 90.6 kg Intake: IV 1750 Oral 700 Output: Drainage 140 160 left lower #3 40 45 left upper #4 10 15 right lower #2 50 50 right upper #1 40 50 Urine 250 Estimated Blood Loss 30 Other: # Voids 1 2 - Exam PHYSICAL EXAMINATION: Patient is lying in the bed comfortably, no acute distress, awake alert and oriented.. HEENT: Normocephalic. Neck is supple. Pupils reactive. Nostrils clear. Oral cavity is moist. Ears reveal no drainage. Neck reveals no JVD, carotid bruits, or thyromegaly. CHEST EXAMINATION: Trachea is central. Symmetrical expansion. Lung munoz clear to auscultation and percussion. Bilateral mastectomy surgical site is bandaged. CARDIAC: Normal S1, S2 with no gallops. No murmurs ABDOMEN: Soft. Bowel sounds normal. No organomegaly. No abdominal bruits. Extremities: reveal no edema. No clubbing or cyanosis Neurologically awake, alert, oriented x3 with well-coordinated movements. No focal deficits noted Skin: No rash or skin lesions. Psychiatric: Coperative. Nonsuicidal Musculoskeletal: No joint swelling or deformity. Normal range of motion. - Labs CBC & Chem 7: 07/30/19 05:34 07/28/19 08:03 Labs: Abnormal Lab Results - Last 24 Hours (Table) 07/29/19 07/29/19 Range/Units 06:14 11:38 RBC 3.01 L 2.77 L (3.80-5.40) m/uL Hgb 8.9 L 8.4 L (11.4-16.0) gm/dL Hct 29.1 L 26.7 L (34.0-46.0) % MCHC 30.5 L (31.0-37.0) g/dL RDW 16.9 H 17.0 H (11.5-15.5) % Assessment and Plan Assessment: Right breast cancer status post chemotherapy. Last on 07/21/2019 Status post right mastectomy with sentinel node biopsy and left mastectomy postoperative day 1 mild acute blood loss anemia likely due to surgery. No evidence of hematoma as per general surgery.. Chronic neck and back pain Hypertension blood pressure slightly elevated Eczema IBS Bilateral peripheral neuropathy Diet controlled diabetes Anxiety DVT prophylaxis with heparin subcu and early ambulation History of marijuana use Plan: Patient will be continued on IV hydration and pain management. Continue with Neurontin and Flexeril. Continue with valsartan and hold hydrochlorothiazide in the hospital. Otherwise continue current management and follow-up closely. Encourage incentive spirometry and ambulation. Further recommendations based on clinical course. Monitor H&H. Time with Patient: Greater than 30
[2019-07-30 12:02] LABS: Anisocytosis Slight; HCT 27.1 % (34.0-46.0); HGB 8.4 gm/dL (11.4-16.0); Hypochromasia Moderate; MCH 30.4 pg (25.0-35.0); MCHC 30.9 g/dL (31.0-37.0); MCV 98.2 fL (80.0-100.0); Macrocytosis Slight; Mean Platelet Volume 7.2; Platelet Count 189 k/uL (150-450); RBC 2.76 m/uL (3.80-5.40); RDW 16.9 % (11.5-15.5); WBC 4.1 k/uL (3.8-10.6)
--- NOTE | 2019-07-30 12:56 | P.PN ---
Subjective Progress Note Date: 07/30/19 Principal diagnosis: Bilateral mastectomies with right axillary node dissection; postop day #2 Lorraine is a 68-year-old white female status post bilateral mastectomies with a right axillary node dissection, POD #2 She is doing well and is tolerating a diet at this time. GAYATRI drainage was serous in nature. Her hemoglobin is 8.1, the last hemoglobin last pm was 8.5 Her dressing was changed there is no evidence of any hematomas and the JPs are all holding suction without difficul ty. Repeat HGB at noon 8.4 no evidence of active bleeding. Objective - Vital Signs Vital signs: Vital Signs Temp 98.2 F 07/30/19 05:00 Pulse 62 07/30/19 05:00 Resp 18 07/30/19 05:00 BP 131/64 07/30/19 05:00 Pulse Ox 96 07/30/19 05:00 Intake & Output 07/29/19 07/30/19 07/30/19 18:59 06:59 18:59 Intake Total 625 Output Total 240 145 Balance -240 480 Intake: Oral 625 Output: Drainage 240 145 left lower #3 65 60 left upper #4 15 10 right lower #2 80 35 right upper #1 80 40 Other: Voiding Method Toilet Toilet # Voids 3 2 - Constitutional General appearance: Present: obese - EENT Eyes: Present: EOMI ENT: Present: hearing grossly normal - Neck Neck: Present: normal ROM - Respiratory Respiratory: bilateral: CTA - Cardiovascular Rhythm: regular Heart sounds: normal: S1, S2 - Integumentary Integumentary Comment(s): Incisions clean and dry GAYATRI drainage serous in nature from all 4 drains No evidence of hematoma or active bleeding - Psychiatric Psychiatric: Present: A&O x's 3, appropriate affect, intact judgment & insight - Labs CBC & Chem 7: 07/30/19 11:44 07/28/19 08:03 Labs: Abnormal Lab Results - Last 24 Hours (Table) 07/29/19 07/29/19 07/30/19 Range/Units 13:17 18:03 05:34 RBC 2.84 L 2.67 L (3.80-5.40) m/uL Hgb 8.5 L 8.1 L (11.4-16.0) gm/dL Hct 27.6 L 26.3 L (34.0-46.0) % MCHC 30.8 L 30.8 L (31.0-37.0) g/dL RDW 17.0 H 16.8 H (11.5-15.5) % Crossmatch See Detail 07/30/19 Range/Units 11:44 RBC 2.76 L (3.80-5.40) m/uL Hgb 8.4 L (11.4-16.0) gm/dL Hct 27.1 L (34.0-46.0) % MCHC 30.9 L (31.0-37.0) g/dL RDW 16.9 H (11.5-15.5) % Crossmatch Assessment and Plan Assessment: Impression: 1. Patient postop day #2 bilateral mastectomy with right axillary node dissection 2. Hemoglobin 8.4 at noon 3. GAYATRI drainage is serous in nature from all drains 4. No evidence of hematoma Plan: 1. DC home 2. follow up with DR. Tinajero one week 3. home health care 4. teach patient drain care
--- NOTE | 2019-07-30 12:58 | P.DS ---
Providers Date of admission: 07/30/19 07:13 Attending physician: Jocelynn Hendrickson Consults: 07/28/19 13:57 Consult Physician Routine Consulting Provider: Wyatt Mustafa Consult Reason/Comments: medical managment Do you want consulting provider notified?: Yes Primary care physician: Rolando Sanderson Plan - Discharge Summary Discharge Rx Participant: No New Discharge Prescriptions: No Action Cyclobenzaprine [Flexeril] 10 mg PO HS Albuterol Inhaler (Mhu) [Ventolin Hfa Inhaler (Mhu)] 1 - 2 puff INHALATION RT-QID PRN PRN Reason: Shortness Of Breath Gabapentin [Neurontin] 400 mg PO QID HYDROcodone/APAP 10-325MG [[place] 10-325] 1 tab PO QID Fluticasone/Vilanterol [Breo Ellipta 200-25 Mcg INH] 2 puff INHALATION RT- DAILY Atorvastatin [Lipitor] 20 mg PO HS Valsartan/Hydrochlorothiazide [Valsartan-Hctz 320-25 mg Tab] 1 tab PO HS DULoxetine HCL [Cymbalta] 60 mg PO DAILY Potassium Chloride [Klor-Con 20] 20 meq PO DAILY Budesonide [Pulmicort Flexhaler] 2 puff INHALATION RT-DAILY Tobramycin/Dexamethasone [Tobradex Ophth Susp] 1 drop LEFT EYE DAILY Tobramycin/Dexamethasone [Tobradex Ophth Susp] 2 drop RIGHT EYE BID DULoxetine HCL [Cymbalta] 30 mg PO DAILY Discharge Medication List Albuterol Inhaler (Mhu) [Ventolin Hfa Inhaler (Mhu)] 1 - 2 puff INHALATION RT- QID PRN 03/30/14 [History] Cyclobenzaprine [Flexeril] 10 mg PO HS 03/30/14 [History] Fluticasone/Vilanterol [Breo Ellipta 200-25 Mcg INH] 2 puff INHALATION RT-DAILY 05/10/15 [History] Gabapentin [Neurontin] 400 mg PO QID 05/10/15 [History] HYDROcodone/APAP 10-325MG [[place] 10-325] 1 tab PO QID 05/10/15 [History] Atorvastatin [Lipitor] 20 mg PO HS 10/14/18 [History] DULoxetine HCL [Cymbalta] 60 mg PO DAILY 03/05/19 [History] Valsartan/Hydrochlorothiazide [Valsartan-Hctz 320-25 mg Tab] 1 tab PO HS 03/05/19 [History] Potassium Chloride [Klor-Con 20] 20 meq PO DAILY 07/14/19 [History] Budesonide [Pulmicort Flexhaler] 2 puff INHALATION RT-DAILY 07/27/19 [History] DULoxetine HCL [Cymbalta] 30 mg PO DAILY 07/27/19 [History] Tobramycin/Dexamethasone [Tobradex Ophth Susp] 1 drop LEFT EYE DAILY 07/27/19 [History] Tobramycin/Dexamethasone [Tobradex Ophth Susp] 2 drop RIGHT EYE BID 07/27/19 [History] Follow up Appointment(s)/Referral(s): Jocelynn Hendrickson MD [STAFF PHYSICIAN] - 1 Week [facility], [REFERRING] - Patient Instructions/Handouts: Mastectomy (DC) Activity/Diet/Wound Care/Special Instructions: may shower after 48 hours wear wrap at all times do not drive until seen by Dr. Tinajero teach drain care call if any concerns Discharge Disposition: HOME WITH HOME HEALTH SERVICES
[2019-07-30 13:03] VITALS: BP 121/54; TEMP 98.6
[2019-07-30 14:34] VITALS: PULSE 78
--- NOTE | 2019-07-30 23:00 | PN ---
PROGRESS NOTE DATE OF SERVICE: 07/30/2019 INTERVAL HISTORY: This pleasant 68-year-old patient was seen by me this morning, status post right mastectomy with sentinel node biopsy and axillary node dissection and left mastectomy. Today she has been sitting up on the bed. Pain is controlled. She has 2 GAYATRI drains. No nausea, vomiting. Did tolerate her breakfast. Rather keen to go home. REVIEW OF SYSTEMS: Review of systems was done for constitutional, cardiovascular, GI, pulmonary; relevant findings as above. CURRENT MEDICATIONS: Current medications are reviewed in today's electronic records. PHYSICAL EXAMINATION: Temperature 98.2, pulse 78, respiration 18, blood pressure 131/64, pulse ox 96% on room air. GENERAL APPEARANCE: Sitting up on bed. Comfortable. EYES: Pupils equal. Conjunctivae normal. NECK: JVD not raised. Mass not palpable. RESPIRATORY: Effort normal. Lungs with fair air entry. CARDIOVASCULAR: First and second sounds normal. No edema. ABDOMEN: Soft, nontender. Liver and spleen not palpable. PSYCHIATRY: Alert and oriented x3. Mood and affect normal. Chest wall has got dressing in place and 2 GAYATRI drains. INVESTIGATIONS: White count 4.1, hemoglobin 8.4, platelets 189. ASSESSMENT: 1. Status post right mastectomy with sentinel node biopsy, axillary node dissection and left mastectomy for right breast stage II cancer. 2. Obesity with body mass index of 35.4. 3. Peripheral neuropathy. 4. Colonic diverticulosis. 5. Scoliosis. PLAN: Continue current medication and treatment plan. If discharged, should follow up with the family doctor. Care was discussed with the patient. Questions were answered. Thank you, Dr. Lorraine Hendrickson. SHIREEN / PRITI: [id number] /
== END 2019-07-30 16:06 | disposition home health service (06) ==
LOC: OR 07:31 → 5NMEDONC 14:12 → OR 07-30 07:13
PROVIDERS: ADMIT Surgery; ATTEND Surgery
DX: N60.12 Diffuse cystic mastopathy of left breast (principal); N60.11 Diffuse cystic mastopathy of right breast; R59.0 Localized enlarged lymph nodes; E11.42 Type 2 diabetes mellitus with diabetic polyneuropathy; E66.9 Obesity, unspecified; F41.9 Anxiety disorder, unspecified; G89.29 Other chronic pain; I10 Essential (primary) hypertension; K57.30 Diverticulosis of large intestine without perforation or abscess without bleeding; K58.9 Irritable bowel syndrome, unspecified; L30.9 Dermatitis, unspecified; M41.9 Scoliosis, unspecified; M79.7 Fibromyalgia; Z68.35 Body mass index [BMI] 35.0-35.9, adult; Z79.51 Long term (current) use of inhaled steroids; Z79.899 Other long term (current) drug therapy; Z82.49 Family history of ischemic heart disease and other diseases of the circulatory system; Z90.710 Acquired absence of both cervix and uterus; Z92.21 Personal history of antineoplastic chemotherapy; Z90.49 Acquired absence of other specified parts of digestive tract; Z98.1 Arthrodesis status; Z79.891 Long term (current) use of opiate analgesic; Z91.040 Latex allergy status; Z91.011 Allergy to milk products; Z88.2 Allergy status to sulfonamides; Z88.8 Allergy status to other drugs, medicaments and biological substances; Z91.018 Allergy to other foods; M54.2 Cervicalgia; M54.9 Dorsalgia, unspecified; D62 Acute posthemorrhagic anemia
CPT/HCPCS: 86900; 86901; 80048; 85025 ×2; 85027; 86850; 88342; 88307; 88309; 88341; 76098; 19285; 38792; 19307; G0378; A9520; J2250; J1644 ×3; J2710; J0690; J2405; J2001; J3010; J1170; J2370; J0330; J2704; 86920

== ENCOUNTER 2019-08-06 09:30 | Emergency (ER) | payer MEDICARE, OTHER ==
[2019-08-06] MEDS ORDERED: SODIUM CHLORIDE 0.9% 1,000 ML IV STA (10:14)
--- NOTE | 2019-08-06 10:14 | ED ---
General Adult HPI - General Chief complaint: Fever Stated complaint: Fever Time Seen by Provider: 08/06/19 09:44 Source: patient Mode of arrival: wheelchair Limitations: no limitations - History of Present Illness Initial comments: Dictation was produced using [employer] dictation software. please excuse any grammatical, word or spelling errors. This patient was cared for during a federal and state declared state of emergency secondary to Covid 19 Chief Complaint: 68-year-old female past medical history of breast cancer status post mastectomy presents with fever. History of Present Illness: 68-year-old female 10 days ago patient had bilateral mastectomy performed by Dr. Hendrickson. For the last 2-3 days patient has been having fevers. She has no specific localizing symptoms. She recently had chemotherapy for breast cancer. Since this might patient has a temperature 12.2. She does complain of constitutional symptoms. Denies any cough, shortness of breath. No pain. She denies any pain or drainage from her surgical site. There was concern that patient was: Positive after her immediate family members tested positive. She states she has not been exposed to these individuals for the last week and a half. Denies any sore throat. No abdominal pain. No diarrhea. The ROS documented in this emergency department record has been reviewed and confirmed by me. Those systems with pertinent positive or negative responses have been documented in the HPI. All other systems are other negative and/or noncontributory. PHYSICAL EXAM: General Impression: Alert and oriented x3, not in acute distress HEENT: Normocephalic atraumatic, extra-ocular movements intact, pupils equal and reactive to light bilaterally, mucous membranes moist. Cardiovascular: Heart regular rate and rhythm Chest: Able to complete full sentences, no retractions, no tachypnea, surgical sites clean dry and intact, GAYATRI drains are in place with drainage of serosanguineous fluid no erythema, induration or fluctuance along the incision line. Abdomen: abdomen soft, non-tender, non-distended, no organomegaly Musculoskeletal: Pulses present and equal in all extremities, no peripheral edema Motor: no focal deficits noted Neurological: CN II-XII grossly intact, no focal motor or sensory deficits noted Skin: Intact with no visualized rashes Psych: Normal affect and mood ED course: 68-year-old male presents with fever. She does have history of bilateral mastectomy recently 10 days ago. Upon arrival shows central 11.4, blood pressure 97/62. She denies any localizing symptoms. She is however on chemotherapy. Laboratory evaluation obtained. No leukocytosis. Hemoglobin 9.0. Lymphocytosis 0.9. Coag panel unremarkable. Metabolic panel shows findings within acceptable limits. Magnesium 1.4. Elevated C-reactive protein of 54.2, rapid coronavirus test negative. Pending PCR coronavirus test. X-rays are unremarkable. At this point it is unclear what is causing patient's increased temperature. Considering that patient is immunosuppressed from chemotherapy is recommended to her to be admitted to the hospital. Patient adamantly refused admission to the hospital and wants to sign out AGAINST MEDICAL ADVICE. Discussed with patient that she could have an underlying serious infection that would require further intervention and monitoring. She understands that by leaving AGAINST MEDICAL ADVICE he could experience significant infection leading to sepsis and possibly even . She is understandable and will sign out AMA. Attempt was made to contact Dr. Lior Maria patient's primary surgeon who initially sent patient to the emergency department for evaluation. Message was left on their answering machine. Second attempt was made to encourage patient to stay in the hospital however she agrees to refuse. Vital signs at time of AGAINST MEDICAL ADVICE disposition were stable. - Related Data Home Medications Medication Instructions Recorded Confirmed Albuterol Inhaler (Mhu) [Ventolin 1 - 2 puff INHALATION RT-QID PRN 03/30/14 07/28/19 Hfa Inhaler (Mhu)] Cyclobenzaprine [Flexeril] 10 mg PO HS 03/30/14 07/28/19 Fluticasone/Vilanterol [Breo 2 puff INHALATION RT-DAILY 05/10/15 07/28/19 Ellipta 200-25 Mcg INH] Gabapentin [Neurontin] 400 mg PO QID 05/10/15 07/28/19 HYDROcodone/APAP 10-325MG [Shepherd 1 tab PO QID 05/10/15 07/28/19 10-325] Atorvastatin [Lipitor] 20 mg PO HS 10/14/18 07/28/19 DULoxetine HCL [Cymbalta] 60 mg PO DAILY 03/05/19 07/28/19 Valsartan/Hydrochlorothiazide 1 tab PO HS 03/05/19 07/28/19 [Valsartan-Hctz 320-25 mg Tab] Potassium Chloride [Klor-Con 20] 20 meq PO DAILY 07/14/19 07/28/19 Budesonide [Pulmicort Flexhaler] 2 puff INHALATION RT-DAILY 07/27/19 07/30/19 DULoxetine HCL [Cymbalta] 30 mg PO DAILY 07/27/19 07/28/19 Tobramycin/Dexamethasone [Tobradex 1 drop LEFT EYE DAILY 07/27/19 07/28/19 Ophth Susp] Tobramycin/Dexamethasone [Tobradex 2 drop RIGHT EYE BID 07/27/19 07/28/19 Ophth Susp] Allergies Allergy/AdvReac Type Severity Reaction Status Date / Time lactase [From Dairy Aid] Allergy Swelling Verified 07/28/19 07:54 latex Allergy Rash/Hives Verified 07/28/19 07:54 Latex, Natural Rubber Allergy Rash/Hives Verified 07/28/19 07:54 Sulfa (Sulfonamide Allergy Swelling Verified 07/28/19 07:54 Antibiotics) pollen extracts AdvReac Intermediate Rhinitis Verified 07/28/19 07:54 Review of Systems ROS Statement: Those systems with pertinent positive or pertinent negative responses have been documented in the HPI. ROS Other: All systems not noted in ROS Statement are negative. Past Medical History Past Medical History: Cancer Additional Past Medical History / Comment(s): chronic neck and back pain, U TI,ECZEMA, IBS,NEUROPATHY, diverticulosis, scoliosis, polyps, bilateral carpal tunnel. Current Right Breast cancer History of Any Multi-Drug Resistant Organisms: None Reported Past Surgical History: Appendectomy, Back Surgery, Bladder Surgery, Cholec ystectomy, Hysterectomy Additional Past Surgical History / Comment(s): right leg, bilateral feet, bilateral wrists for carpal tunnel, colonoscopy, bladder suspension, BACK SX( FUSION -HAD METAL IN BACK, since been removed), HX ECTOPIC . Surgery on left hand. bilateral mastectomy 07/28/19 Past Anesthesia/Blood Transfusion Reactions: Blood Transfusion Reaction Additional Past Anesthesia/Blood Transfusion Reaction / Comment(s): Patients states had a blood transfusion and woke up with red dots all over her skin and t he nurse told her she had a reaction to the blood. Past Psychological History: Anxiety Smoking Status: Never smoker Past Alcohol Use History: Occasional Past Drug Use History: Marijuana - Past Family History Daughter(s) Family Medical History: Cancer Additional Family Medical History / Comment(s): Passed of a brain tumor at the age of 11 in 1990 Father Family Medical History: Congestive Heart Failure (CHF), Hyperlipidemia, Hypertension Additional Family Medical History / Comment(s): LIVED TO AGE 89, HX MALARIA Mother Family Medical History: Cancer Additional Family Medical History / Comment(s): BRAIN ANEURYSM AT AGE 56 General Exam Limitations: no limitations Course Vital Signs 08/06/19 08/06/19 08/06/19 09:31 11:00 12:13 Temperature 101.4 F H 100.7 F H Pulse Rate 95 93 76 Respiratory 18 18 16 Rate Blood Pressure 97/62 114/64 90/49 O2 Sat by Pulse 97 95 99 Oximetry 08/06/19 12:30 Temperature Pulse Rate 86 Respiratory 18 Rate Blood Pressure 114/63 O2 Sat by Pulse 96 Oximetry Medical Decision Making - Lab Data Result diagrams: 08/06/19 10:55 08/06/19 10:55 Lab Results 08/06/19 08/06/19 08/06/19 Range/Units 10:55 10:55 10:55 WBC 8.6 (3.8-10.6) k/uL RBC 3.02 L (3.80-5.40) m/uL Hgb 9.0 L (11.4-16.0) gm/dL Hct 28.4 L (34.0-46.0) % MCV 94.1 (80.0-100.0) fL MCH 29.9 (25.0-35.0) pg MCHC 31.8 (31.0-37.0) g/dL RDW 17.2 H (11.5-15.5) % Plt Count 244 (150-450) k/uL Neutrophils % 80 % Lymphocytes % 10 % Monocytes % 8 % Eosinophils % 1 % Basophils % 0 % Neutrophils # 6.9 (1.3-7.7) k/uL Lymphocytes # 0.9 L (1.0-4.8) k/uL Monocytes # 0.7 (0-1.0) k/uL Eosinophils # 0.1 (0-0.7) k/uL Basophils # 0.0 (0-0.2) k/uL Hypochromasia Slight Anisocytosis Slight PT 10.3 (9.0-12.0) sec INR 1.0 (<1.2) APTT 25.5 (22.0-30.0) sec Sodium (137-145) mmol/L Potassium (3.5-5.1) mmol/L Chloride (98-107) mmol/L Carbon Dioxide (22-30) mmol/L Anion Gap mmol/L BUN (7-17) mg/dL Creatinine (0.52-1.04) mg/dL Est GFR (CKD-EPI)AfAm (>60 ml/min/1.73 sqM) Est GFR (CKD-EPI)NonAf (>60 ml/min/1.73 sqM) Glucose (74-99) mg/dL Plasma Lactic Acid Ayaan (0.7-2.0) mmol/L Calcium (8.4-10.2) mg/dL Magnesium (1.6-2.3) mg/dL Troponin I (0.000-0.034) ng/mL C-Reactive Protein (<10.0) mg/L Coronavirus (PCR) (Not Detectd) Blood Type A Positive Blood Type Recheck A Pos Bld Type Recheck Status No Antibody Screen NEGATIVE Spec Expiration Date 08/09/2019235408/06/19 08/06/19 08/06/19 Range/Units 10:55 10:55 10:55 WBC (3.8-10.6) k/uL RBC (3.80-5.40) m/uL Hgb (11.4-16.0) gm/dL Hct (34.0-46.0) % MCV (80.0-100.0) fL MCH (25.0-35.0) pg MCHC (31.0-37.0) g/dL RDW (11.5-15.5) % Plt Count (150-450) k/uL Neutrophils % % Lymphocytes % % Monocytes % % Eosinophils % % Basophils % % Neutrophils # (1.3-7.7) k/uL Lymphocytes # (1.0-4.8) k/uL Monocytes # (0-1.0) k/uL Eosinophils # (0-0.7) k/uL Basophils # (0-0.2) k/uL Hypochromasia Anisocytosis PT (9.0-12.0) sec INR (<1.2) APTT (22.0-30.0) sec Sodium 130 L (137-145) mmol/L Potassium 3.4 L (3.5-5.1) mmol/L Chloride 94 L (98-107) mmol/L Carbon Dioxide 28 (22-30) mmol/L Anion Gap 8 mmol/L BUN 21 H (7-17) mg/dL Creatinine 1.05 H (0.52-1.04) mg/dL Est GFR (CKD-EPI)AfAm 64 (>60 ml/min/1.73 sqM) Est GFR (CKD-EPI)NonAf 55 (>60 ml/min/1.73 sqM) Glucose 102 H (74-99) mg/dL Plasma Lactic Acid Ayaan 1.3 (0.7-2.0) mmol/L Calcium 8.8 (8.4-10.2) mg/dL Magnesium 1.4 L (1.6-2.3) mg/dL Troponin I <0.012 (0.000-0.034) ng/mL C-Reactive Protein 54.2 H (<10.0) mg/L Coronavirus (PCR) (Not Detectd) Blood Type Blood Type Recheck Bld Type Recheck Status Antibody Screen Spec Expiration Date 08/06/19 Range/Units 10:55 WBC (3.8-10.6) k/uL RBC (3.80-5.40) m/uL Hgb (11.4-16.0) gm/dL Hct (34.0-46.0) % MCV (80.0-100.0) fL MCH (25.0-35.0) pg MCHC (31.0-37.0) g/dL RDW (11.5-15.5) % Plt Count (150-450) k/uL Neutrophils % % Lymphocytes % % Monocytes % % Eosinophils % % Basophils % % Neutrophils # (1.3-7.7) k/uL Lymphocytes # (1.0-4.8) k/uL Monocytes # (0-1.0) k/uL Eosinophils # (0-0.7) k/uL Basophils # (0-0.2) k/uL Hypochromasia Anisocytosis PT (9.0-12.0) sec INR (<1.2) APTT (22.0-30.0) sec Sodium (137-145) mmol/L Potassium (3.5-5.1) mmol/L Chloride (98-107) mmol/L Carbon Dioxide (22-30) mmol/L Anion Gap mmol/L BUN (7-17) mg/dL Creatinine (0.52-1.04) mg/dL Est GFR (CKD-EPI)AfAm (>60 ml/min/1.73 sqM) Est GFR (CKD-EPI)NonAf (>60 ml/min/1.73 sqM) Glucose (74-99) mg/dL Plasma Lactic Acid Ayaan (0.7-2.0) mmol/L Calcium (8.4-10.2) mg/dL Magnesium (1.6-2.3) mg/dL Troponin I (0.000-0.034) ng/mL C-Reactive Protein (<10.0) mg/L Coronavirus (PCR) Not Detected (Not Detectd) Blood Type Blood Type Recheck Bld Type Recheck Status Antibody Screen Spec Expiration Date Disposition Clinical Impression: Fever Disposition: Left Against Medical Advice Condition: Fair Instructions (If sedation given, give patient instructions): Fever in Adults (ED) Is patient prescribed a controlled substance at d/c from ED?: No Referrals: Rolando Sanderson MD [Primary Care Provider] - 1-2 days Time of Disposition: 13:35
[2019-08-06 11:34] LABS: Anisocytosis Slight; Basophils % (A) 0 %; Eosinophils # (A) 0.1 k/uL (0-0.7); Eosinophils % (A) 1 %; HCT 28.4 % (34.0-46.0); Hypochromasia Slight; Lymphocytes # (A) 0.9 k/uL (1.0-4.8); Lymphocytes % (A) 10 %; MCH 29.9 pg (25.0-35.0); MCHC 31.8 g/dL (31.0-37.0); MCV 94.1 fL (80.0-100.0); Mean Platelet Volume 7.5; Monocytes # (A) 0.7 k/uL (0-1.0); Monocytes % (A) 8 %; Neutrophils # (A) 6.9 k/uL (1.3-7.7); Neutrophils % (A) 80 %; Platelet Count 244 k/uL (150-450); RBC 3.02 m/uL (3.80-5.40); RDW 17.2 % (11.5-15.5); WBC 8.6 k/uL (3.8-10.6)
[2019-08-06 11:47] LABS: C Reactive Protein 54.2 mg/L (<10.0); Calcium 8.8 mg/dL (8.4-10.2); Magnesium 1.4 mg/dL (1.6-2.3); Potassium 3.4 mmol/L (3.5-5.1)
--- NOTE | 2019-08-06 11:55 | XR ---
EXAMINATION TYPE: XR chest 1V portable DATE OF EXAM: 08/06/2019 COMPARISON: 03/04/2019 INDICATION: Fever TECHNIQUE: Single frontal view of the chest is obtained. FINDINGS: The heart size is normal. The pulmonary vasculature is normal. The lungs are clear. Port is present on the right with the tip in superior vena cava region. Surgical clips and drainage c atheters are present along the anterior chest wall from the patient's recent surgery. IMPRESSION: 1. No acute pulmonary process. 2. Postsurgical changes.
[2019-08-06 12:11] LABS: Partial Thromboplastin Time 25.5 sec (22.0-30.0); Prothrombin Time 10.3 sec (9.0-12.0)
[2019-08-06 12:23] VITALS: TEMP 100.7
[2019-08-06 13:22] VITALS: BP 114/63; PULSE 86; RESP 18
[2019-08-06 13:41] LABS: Appearance,Urine Clear (Clear); Bacteria,Urine Rare /hpf; Bilirubin,Urine Negative (Negative); Blood,Urine Negative (Negative); Color,Urine Yellow; Glucose,Urine (UA) Negative (Negative); Ketones,Urine Negative (Negative); Leukocyte Esterase,Urine Large (Negative); Mucus,Urine Rare /hpf; Nitrite,Urine Negative (Negative); PH, Urine 6.5 (5.0-8.0); Protein,Urine Negative (Negative); RBC,Urine 2 /hpf (0-5); Specific Gravity,Urine 1.009 (1.001-1.035); Squamous Epithelial Cell,Urine 1 /hpf (0-4); Urobilinogen,Urine <2.0 mg/dL (<2.0); WBC,Urine 21 /hpf (0-5)
[2019-08-06] MEDS ORDERED: CEPHALEXIN 500MG STARTER PACK 4 CAP BTL PO STA (13:48)
[2019-08-06] MEDS ORDERED: CEPHALEXIN 500 MG CAP PO STA (13:48)
--- NOTE | 2019-08-06 13:50 | ED ---
Medical Decision Making - Medical Decision Making While waiting to leave AGAINST MEDICAL ADVICE patient's urine came back. There was 21 white blood cells. Concern for urinary tract infection. Patient was very anxious to leave however did consent to 500 mg of by mouth Keflex. Patient is given prescription for by mouth Keflex to take home. She will be going straight to Dr. Lior Maria's office for evaluation of surgical site. - Lab Data Result diagrams: 08/06/19 10:55 08/06/19 10:55 Lab Results 08/06/19 08/06/19 08/06/19 Range/Units 10:55 10:55 10:55 WBC 8.6 (3.8-10.6) k/uL RBC 3.02 L (3.80-5.40) m/uL Hgb 9.0 L (11.4-16.0) gm/dL Hct 28.4 L (34.0-46.0) % MCV 94.1 (80.0-100.0) fL MCH 29.9 (25.0-35.0) pg MCHC 31.8 (31.0-37.0) g/dL RDW 17.2 H (11.5-15.5) % Plt Count 244 (150-450) k/uL Neutrophils % 80 % Lymphocytes % 10 % Monocytes % 8 % Eosinophils % 1 % Basophils % 0 % Neutrophils # 6.9 (1.3-7.7) k/uL Lymphocytes # 0.9 L (1.0-4.8) k/uL Monocytes # 0.7 (0-1.0) k/uL Eosinophils # 0.1 (0-0.7) k/uL Basophils # 0.0 (0-0.2) k/uL Hypochromasia Slight Anisocytosis Slight PT 10.3 (9.0-12.0) sec INR 1.0 (<1.2) APTT 25.5 (22.0-30.0) sec Sodium (137-145) mmol/L Potassium (3.5-5.1) mmol/L Chloride (98-107) mmol/L Carbon Dioxide (22-30) mmol/L Anion Gap mmol/L BUN (7-17) mg/dL Creatinine (0.52-1.04) mg/dL Est GFR (CKD-EPI)AfAm (>60 ml/min/1.73 sqM) Est GFR (CKD-EPI)NonAf (>60 ml/min/1.73 sqM) Glucose (74-99) mg/dL Plasma Lactic Acid Ayaan (0.7-2.0) mmol/L Calcium (8.4-10.2) mg/dL Magnesium (1.6-2.3) mg/dL Troponin I (0.000-0.034) ng/mL C-Reactive Protein (<10.0) mg/L Urine Color Urine Appearance (Clear) Urine pH (5.0-8.0) Ur Specific [place] (1.001-1.035) Urine Protein (Negative) Urine Glucose (UA) (Negative) Urine Ketones (Negative) Urine Blood (Negative) Urine Nitrite (Negative) Urine Bilirubin (Negative) Urine Urobilinogen (<2.0) mg/dL Ur Leukocyte Esterase (Negative) Urine RBC (0-5) /hpf Urine WBC (0-5) /hpf Ur Squamous Epith Cells (0-4) /hpf Urine Bacteria (None) /hpf Urine Mucus (None) /hpf Coronavirus (PCR) (Not Detectd) Blood Type A Positive Blood Type Recheck A Pos Bld Type Recheck Status No Antibody Screen NEGATIVE Spec Expiration Date 08/09/2019235408/06/19 08/06/19 08/06/19 Range/Units 10:55 10:55 10:55 WBC (3.8-10.6) k/uL RBC (3.80-5.40) m/uL Hgb (11.4-16.0) gm/dL Hct (34.0-46.0) % MCV (80.0-100.0) fL MCH (25.0-35.0) pg MCHC (31.0-37.0) g/dL RDW (11.5-15.5) % Plt Count (150-450) k/uL Neutrophils % % Lymphocytes % % Monocytes % % Eosinophils % % Basophils % % Neutrophils # (1.3-7.7) k/uL Lymphocytes # (1.0-4.8) k/uL Monocytes # (0-1.0) k/uL Eosinophils # (0-0.7) k/uL Basophils # (0-0.2) k/uL Hypochromasia Anisocytosis PT (9.0-12.0) sec INR (<1.2) APTT (22.0-30.0) sec Sodium 130 L (137-145) mmol/L Potassium 3.4 L (3.5-5.1) mmol/L Chloride 94 L (98-107) mmol/L Carbon Dioxide 28 (22-30) mmol/L Anion Gap 8 mmol/L BUN 21 H (7-17) mg/dL Creatinine 1.05 H (0.52-1.04) mg/dL Est GFR (CKD-EPI)AfAm 64 (>60 ml/min/1.73 sqM) Est GFR (CKD-EPI)NonAf 55 (>60 ml/min/1.73 sqM) Glucose 102 H (74-99) mg/dL Plasma Lactic Acid Ayaan 1.3 (0.7-2.0) mmol/L Calcium 8.8 (8.4-10.2) mg/dL Magnesium 1.4 L (1.6-2.3) mg/dL Troponin I <0.012 (0.000-0.034) ng/mL C-Reactive Protein 54.2 H (<10.0) mg/L Urine Color Urine Appearance (Clear) Urine pH (5.0-8.0) Ur Specific [place] (1.001-1.035) Urine Protein (Negative) Urine Glucose (UA) (Negative) Urine Ketones (Negative) Urine Blood (Negative) Urine Nitrite (Negative) Urine Bilirubin (Negative) Urine Urobilinogen (<2.0) mg/dL Ur Leukocyte Esterase (Negative) Urine RBC (0-5) /hpf Urine WBC (0-5) /hpf Ur Squamous Epith Cells (0-4) /hpf Urine Bacteria (None) /hpf Urine Mucus (None) /hpf Coronavirus (PCR) (Not Detectd) Blood Type Blood Type Recheck Bld Type Recheck Status Antibody Screen Spec Expiration Date 08/06/19 08/06/19 Range/Units 10:55 13:10 WBC (3.8-10.6) k/uL RBC (3.80-5.40) m/uL Hgb (11.4-16.0) gm/dL Hct (34.0-46.0) % MCV (80.0-100.0) fL MCH (25.0-35.0) pg MCHC (31.0-37.0) g/dL RDW (11.5-15.5) % Plt Count (150-450) k/uL Neutrophils % % Lymphocytes % % Monocytes % % Eosinophils % % Basophils % % Neutrophils # (1.3-7.7) k/uL Lymphocytes # (1.0-4.8) k/uL Monocytes # (0-1.0) k/uL Eosinophils # (0-0.7) k/uL Basophils # (0-0.2) k/uL Hypochromasia Anisocytosis PT (9.0-12.0) sec INR (<1.2) APTT (22.0-30.0) sec Sodium (137-145) mmol/L Potassium (3.5-5.1) mmol/L Chloride (98-107) mmol/L Carbon Dioxide (22-30) mmol/L Anion Gap mmol/L BUN (7-17) mg/dL Creatinine (0.52-1.04) mg/dL Est GFR (CKD-EPI)AfAm (>60 ml/min/1.73 sqM) Est GFR (CKD-EPI)NonAf (>60 ml/min/1.73 sqM) Glucose (74-99) mg/dL Plasma Lactic Acid Ayaan (0.7-2.0) mmol/L Calcium (8.4-10.2) mg/dL Magnesium (1.6-2.3) mg/dL Troponin I (0.000-0.034) ng/mL C-Reactive Protein (<10.0) mg/L Urine Color Yellow Urine Appearance Clear (Clear) Urine pH 6.5 (5.0-8.0) Ur Specific [place] 1.009 (1.001-1.035) Urine Protein Negative (Negative) Urine Glucose (UA) Negative (Negative) Urine Ketones Negative (Negative) Urine Blood Negative (Negative) Urine Nitrite Negative (Negative) Urine Bilirubin Negative (Negative) Urine Urobilinogen <2.0 (<2.0) mg/dL Ur Leukocyte Esterase Large H (Negative) Urine RBC 2 (0-5) /hpf Urine WBC 21 H (0-5) /hpf Ur Squamous Epith Cells 1 (0-4) /hpf Urine Bacteria Rare H (None) /hpf Urine Mucus Rare H (None) /hpf Coronavirus (PCR) Not Detected (Not Detectd) Blood Type Blood Type Recheck Bld Type Recheck Status Antibody Screen Spec Expiration Date Disposition Clinical Impression: Fever Disposition: Left Against Medical Advice Condition: Fair Instructions (If sedation given, give patient instructions): Fever in Adults (ED) Prescriptions: Cephalexin [Keflex] 500 mg PO Q6HR 5 Days #20 cap Is patient prescribed a controlled substance at d/c from ED?: No Referrals: Rolando Sanderson MD [Primary Care Provider] - 1-2 days Time of Disposition: 13:49
--- NOTE | 2019-08-06 15:32 | P.PN ---
Subjective Progress Note Date: 08/06/19 Principal diagnosis: sttus post bilateral mastectomies The patient status post bilateral mastectomies on 07-28-19. The patient had been doing well until last night when she noted in increased fever up to 102.7. She did not present at the emergency room last night and when her temperature was still elevated this morning she came to the emergency room. While in the emergency room her temperature came down in the office it was was weaned 2. She is not having any constitutional symptoms. In the emergency room she was noted to have a patient is leukocyte esterase large amount and 21 white blood cells. Bacteria were rare. White count was 8.6 and hemoglobin was 9. Preoperative hemoglobin had been 9.7. GAYATRI drains on the left were minimal was no evidence of any infection and GAYATRI drains on the right remained greater than 40 mL for several consecutive days. The patient has some mild erythema at the right mastectomy incision and this was marked using a peripheral marking pen. Incision sites are clean and dry. The JPs on the right were not holding suction well and is noted that there is some erosion at the entrance site of the skin. Objective - Vital Signs Vital signs: Vital Signs Temp 100.7 F H 08/06/19 12:13 Pulse 86 08/06/19 12:30 Resp 18 08/06/19 12:30 BP 114/63 08/06/19 12:30 Pulse Ox 96 08/06/19 12:30 Intake & Output 08/05/19 08/06/19 08/06/19 18:59 06:59 18:59 Weight 89.811 kg - Constitutional General appearance: Present: obese - EENT Eyes: Present: EOMI ENT: Present: hearing grossly normal - Neck Neck: Present: normal ROM - Respiratory Respiratory: bilateral: CTA - Cardiovascular Rhythm: regular Heart sounds: normal: S1, S2 - Gastrointestinal General gastrointestinal: Present: soft - Integumentary Integumentary Comment(s): mild erythema mid portion of right mastectomy incision, marked with a purple marking pen ,no crepatance Integumentary: Present: normal turgor - Musculoskeletal Musculoskeletal Comment(s): came in a wheel chair - Psychiatric Psychiatric: Present: A&O x's 3, appropriate affect, intact judgment & insight - Labs CBC & Chem 7: 08/06/19 10:55 08/06/19 10:55 Labs: Abnormal Lab Results - Last 24 Hours (Table) 08/06/19 08/06/19 08/06/19 Range/Units 10:55 10:55 13:10 RBC 3.02 L (3.80-5.40) m/uL Hgb 9.0 L (11.4-16.0) gm/dL Hct 28.4 L (34.0-46.0) % RDW 17.2 H (11.5-15.5) % Lymphocytes # 0.9 L (1.0-4.8) k/uL Sodium 130 L (137-145) mmol/L Potassium 3.4 L (3.5-5.1) mmol/L Chloride 94 L (98-107) mmol/L BUN 21 H (7-17) mg/dL Creatinine 1.05 H (0.52-1.04) mg/dL Glucose 102 H (74-99) mg/dL Magnesium 1.4 L (1.6-2.3) mg/dL C-Reactive Protein 54.2 H (<10.0) mg/L Ur Leukocyte Esterase Large H (Negative) Urine WBC 21 H (0-5) /hpf Urine Bacteria Rare H (None) /hpf Urine Mucus Rare H (None) /hpf Assessment and Plan Assessment: Impression: 1. Bilateral mastectomy [id number] 2. Patient with fever last night, evaluated emergency room appears to have u rinary tract infection 3. No evidence of infection at the mastectomy sites at this time 4. Mild erythema in the midportion of the right mastectomy incision Plan: 1. Patient given prescription for antibiotics in the emergency room 2. Would request that urine cultures be obtained 3. Patient is going to follow tomorrow to continue to follow wound to 4. Patient is afebrile at this time, if she develops a fever again or has any Questions or concerns she will present to the emergency room tonight drain right not holding suction, drains left less than 40 cc/day for several days Drains 3 and 4 removed Drains on the right reinforced with suture Cc: Dr. Sanderson
--- NOTE | 2019-08-06 15:34 | P.PCN ---
Date of Procedure: 08/06/19 Preoperative Diagnosis: 2 drains now holding suction following right mastectomy Postoperative Diagnosis: Same Procedure(s) Performed: 2 drains on the right reinforced entrance site following mastectomy not holding suction Surgeon: Jocelynn Hendrickson Disposition: same day Indications for Procedure: 2 Drains not holding suction right mastectomy site Description of Procedure: The area of the right chest wall was prepped using Betadine. 1% lidocaine was used to anesthetize the area of the entrance site of 2 drains. The drain sites were secured using 3-0 nylon suture. Following this the drains held suction without difficulty. Patient tolerated the procedure in stable condition.
== END 2019-08-06 13:59 | disposition left against medical advice (07) ==
LOC: EC 09:30
DX: R50.9 Fever, unspecified (principal); L76.82 Other postprocedural complications of skin and subcutaneous tissue; D72.820 Lymphocytosis (symptomatic); F41.9 Anxiety disorder, unspecified; R82.998 Other abnormal findings in urine; R79.82 Elevated C-reactive protein (CRP); G89.29 Other chronic pain; M54.2 Cervicalgia; M54.9 Dorsalgia, unspecified; G62.9 Polyneuropathy, unspecified; Z79.891 Long term (current) use of opiate analgesic; Z79.899 Other long term (current) drug therapy; Z91.040 Latex allergy status; Z88.2 Allergy status to sulfonamides; Z91.048 Other nonmedicinal substance allergy status; Z85.3 Personal history of malignant neoplasm of breast; Z90.13 Acquired absence of bilateral breasts and nipples; Z92.21 Personal history of antineoplastic chemotherapy; Z53.20 Procedure and treatment not carried out because of patient's decision for unspecified reasons; Z20.828 Contact with and (suspected) exposure to other viral communicable diseases
CPT/HCPCS: 36415; 71045; 80048; 81001; 83605; 83735; 84484; 85025; 85610; 85730; 86140; 86850; 86900; 86901; 87040; 87086; 87635; 96360; 99283

== ENCOUNTER → 2019-08-06 | Outpatient (CLI) | payer OTHER ==
[2019-08-06 17:12] VITALS: BP 93/57; PULSE 88; RESP 18; TEMP 98.2
== END | disposition home or self-care (01) ==
LOC: WWCWWP 14:07
PROVIDERS: ATTEND Surgery
DX: N39.0 Urinary tract infection, site not specified (principal)
CPT/HCPCS: 87086

== ENCOUNTER → 2019-08-14 | Outpatient (CLI) | payer OTHER ==
[2019-08-14 09:27] VITALS: BP 100/52; PULSE 80; RESP 18; TEMP 98.3
--- NOTE | 2019-08-14 10:05 | P.PN ---
Subjective Progress Note Date: 08/14/19 Principal diagnosis: right breast cancer; stage II Lorraine is a 68-year-old white female status post bilateral mastectomies on . Pathology revealed 6 lymph nodes negative for metastasis. Fibrous scarring and histiocyte aggregates and granulomatous reaction was noted. There was a pathologic complete response in 2 of 6 nodes. Right axillary contents 9 axillary nodes negative for metastatic cancer. The patient had a bilateral mastectomy both breasts were negative for any invasive ductal carcinoma. The patient postprocedure developed a fever and was seen in the emergency room on 520 120. She was noted to have a urinary tract infection was started on antibiotics. There was resolution of the fever. She presents today for evaluation of the incisions. She has 2 drains residual on the right the drain #1 43, and yesterday 50. Drain number two 42, and 47 for yesterday. Drain #2 was being removed today. The patient has no complaints related to her surgery otherwise today. She saw ophthalmology yesterday. Of concern is the fact that during her chemotherapy she will had loss of her eyelashes and now her eyelashes have grown back and inverted. These were plucked out by DR. Blair, and she was given eyedrops. She will continue to follow with him. She is going to continue to follow with Dr. Gonzalez, at this time her appointments are teleconference secondary to jang virus. Blood work was done yesterday. White count 5.7, hemoglobin 8.4. Platelets 353 Objective - Vital Signs Vital signs: Vital Signs Temp 98.3 F 08/14/19 09:24 Pulse 80 08/14/19 09:24 Resp 18 08/14/19 09:24 BP 100/52 08/14/19 09:24 Pulse Ox 95 08/14/19 09:24 Intake & Output 08/13/19 08/14/19 08/14/19 18:59 06:59 18:59 Weight 90.265 kg - Exam BMI 35.3 - Constitutional General appearance: Present: cooperative - EENT Eyes: Present: EOMI ENT: Present: hearing grossly normal - Respiratory Respiratory: bilateral: CTA - Cardiovascular Rhythm: regular Heart sounds: normal: S1, S2 - Integumentary Integumentary Comment(s): incisions bilateral clean and dry, seroma on the left chest wall GAYATRI #1 and #2 serous; number 2 close to 40 cc for 24 hours Integumentary: Present: normal turgor Assessment and Plan Assessment: Impression: 1. Stage II right breast cancer status post bilateral mastectomies with right axillary node dissection 2. Seroma left chest wall 3. Inverted eyelashes following with ophthalmology Plan: 1. DC all jose 2. DC GAYATRI #2 3. Aspiration seroma wall 4. Follow-up one week 5. Continue to follow with Dr. Gonzalez 6. Continue to follow with ophthalmology CC: Dr. Sanderson
--- NOTE | 2019-08-14 10:06 | P.PCN ---
Date of Procedure: 08/14/19 Preoperative Diagnosis: Left chest wall seroma Postoperative Diagnosis: Same Procedure(s) Performed: Aspiration seroma left chest wall Pathology: none sent Condition: stable Disposition: same day Description of Procedure: The area of seroma in the left chest was prepped using alcohol. An 18-gauge needle on a 60 mL syringe was used to aspirate the fluid. This was inserted into the seroma site after the skin and then prepped with alcohol. Proximally 60 mL of straw-colored fluid was obtained with resolution of the seroma. Patient tolerated procedure in stable condition.
== END | disposition home or self-care (01) ==
LOC: WWCWWP 09:16
PROVIDERS: ATTEND Surgery
DX: Z53.9 Procedure and treatment not carried out, unspecified reason (principal)

== ENCOUNTER → 2019-08-19 | Outpatient (CLI) | payer OTHER ==
--- NOTE | 2019-08-20 15:52 | ECHOF ---
Referral Reason:Z01.818 pre-chemo, C50.911 breast cancer MEASUREMENTS -------- HEIGHT: 160.0 cm WEIGHT: 89.8 kg BP: IVSd: 1.2 cm (0.6 - 1.1) LVIDd: 4.1 cm (3.9 - 5.3) LVPWd: 1.2 cm (0.6 - 1.1) IVSs: 1.7 cm LVIDs: 2.2 cm LVPWs: 1.5 cm LA Diam: 3.5 cm (2.7 - 3.8) RVIDd: 3.2 cm (< 3.3) Ao Diam: 3.7 cm (2.0 - 3.7) AV Cusp: 1.7 cm (1.5 - 2.6) EPSS: 0.2 cm MV E German: 0.77 m/s MV DecT: 313 ms MV A German: 0.86 m/s MV E/A Ratio: 0.90 RAP: 5.00 mmHg RVSP: 34.14 mmHg MV EF SLOPE: 60.82 mm/s (70 - 150) MV EXCURSION: 13.54 mm (> 18.000) FINDINGS -------- Sinus rhythm. This was a technically adequate study. The left ventricular size is normal. There is borderline concentric left ventricular hypertrophy. Overall left ventricular systolic function is normal with, an EF between 60 - 65 %. The right ventricle is normal in size. The left atrial size is normal. The right atrium is normal in size. Interatrial and interventricular septum intact. There is mild aortic valve sclerosis. Trace to mild aortic regurgitation. There is trace mitral regurgitation. Mild tricuspid regurgitation present. There is borderline pulmonary hypertension. The right ventr icular systolic pressure, as measured by Doppler, is 34.14mmHg. There is no pulmonic regurgitation present. The aortic root size is normal. Normal inferior vena cava with normal inspiratory collapse consistent with estimated right atrial pre ssure of 5 mmHg. There is no pericardial effusion. CONCLUSIONS -------- 1. Sinus rhythm. 2. This was a technically adequate study. 3. The left ventricular size is normal. 4. There is borderline concentric left ventricular hypertrophy. 5. Overall left ventricular systolic function is normal with, an EF between 60 - 65 %. 6. The right ventricle is normal in size. 7. The left atrial size is normal. 8. The right atrium is normal in size. 9. Interatrial and interventricular septum intact. 10. There is mild aortic valve sclerosis. 11. Trace to mild aortic regurgitation. 12. There is trace mitral regurgitation. 13. Mild tricuspid regurgitation present. 14. There is borderline pulmonary hypertension. 15. The right ventricular systolic pressure, as measured by Doppler, is 34.14mmHg. 16. There is no pulmonic regurgitation present. 17. The aortic root size is normal. 18. Normal inferior vena cava with normal inspiratory collapse consistent with estimated right atrial pressure of 5 mmHg. 19. There is no pericardial effusion. DRY HEAT ROOM ATTENDANT: Gudelia Andrews RDCS
== END | disposition home or self-care (01) ==
LOC: RADECHMAIN 13:59
PROVIDERS: ATTEND Internal Medicine Hematology & Oncology
DX: I27.20 Pulmonary hypertension, unspecified (principal); I07.1 Rheumatic tricuspid insufficiency; I35.0 Nonrheumatic aortic (valve) stenosis; C50.911 Malignant neoplasm of unspecified site of right female breast; Z88.2 Allergy status to sulfonamides; Z01.818 Encounter for other preprocedural examination
CPT/HCPCS: 93306

== ENCOUNTER → 2019-08-21 | Outpatient (CLI) | payer OTHER ==
[2019-08-21 15:44] VITALS: BP 91/53; PULSE 82; RESP 20; TEMP 98.4
--- NOTE | 2019-08-21 15:57 | P.PN ---
Progress Note - Text Lorraine is a 68-year-old [place] [id number]. Pathology revealed 6 lymph nodes negative for metastasis. Fibrous scarring and histiocyte aggregates and granulomatous reaction was noted. There was a pathologic complete response in 2 of 6 nodes. Right axillary contents 9 axillary nodes negative for metastatic cancer. The patient had a bilateral mastectomy both breasts were negative for any invasive ductal carcinoma. The patient is doing well today. She has 1 drain left in the right side. The drainage is greater than 40 mL for 24 hours over the last several days therefore the drain is going to remain in place. The operative serous in nature. She has a seroma in the left chest wall and this is going to be aspirated. Otherwise the patient is doing well. Physical exam: Lungs: Clear Heart: Regular rate and rhythm Incision right breast clean and dry GAYATRI serous in nature Incision left chest wall clean and dry seroma present Impression: 1. Patient doing well post bilateral mastectomy 2. Seroma left breast Plan: 1. Aspiration seroma 2. Leave drain in place at this time 3. Follow-up in 2 weeks CC: Dr. Gonzalez
--- NOTE | 2019-08-21 15:59 | P.PCN ---
Date of Procedure: 08/21/19 Preoperative Diagnosis: seroma left chest wall Postoperative Diagnosis: same Procedure(s) Performed: aspiration of seroma Surgeon: Jocelynn Hendrickson Pathology: none sent Condition: stable Disposition: same day Indications for Procedure: Seroma left chest wall Description of Procedure: The area of the left chest wall was prepped using alcohol. An 18-gauge needle on a 60 mL syringe was inserted into the area of fluctuance. 180 mL of yellow straw-colored fluid was removed. There was resolution of the seroma. Patient tolerated procedure in stable condition.
== END | disposition home or self-care (01) ==
LOC: WWCWWP 15:34
PROVIDERS: ATTEND Surgery
DX: Z53.9 Procedure and treatment not carried out, unspecified reason (principal)

== ENCOUNTER → 2019-08-28 | Outpatient (CLI) | payer OTHER ==
[2019-08-28 16:43] VITALS: BP 131/75; PULSE 71; RESP 20; TEMP 98.7
--- NOTE | 2019-08-28 16:43 | P.PN ---
Subjective Progress Note Date: 08/28/19 Principal diagnosis: bilateral mastectomy Lorraine is a 68-year-old white female status post bilateral mastectomies and [id number]. Pathology revealed 6 lymph nodes negative for metastases. Fibrous scarring histiocytic aggregates and granulomatous reaction was noted. There was a pathologic complete response in 2 of 6 nodes. Patient had bilateral mastectomy both breasts were negative for invasive ductal cancer. Patient is seen today regarding seromas bilaterally. All of her GAYATRI drains are removed. The left breast there is a larger seroma and aspiration was performed. In the right breast there is a small seroma aspiration was performed as well. Patient received neoadjuvant therapy and does not need any further chemotherapy. She has opted not to have radiation therapy. She is complaining of some problems with her eyelashes growing in and is being followed by ophthalmology for this. She is going to see Dr. Eric specialists in [place] next week secondary to some corneal scratches. Patient has bilateral foot neuropathy, she is taking gabapentin for this. Objective - Constitutional General appearance: Present: average body habitus - EENT Eyes: Present: EOMI ENT: Present: hearing grossly normal - Respiratory Respiratory: bilateral: CTA - Cardiovascular Rhythm: regular Heart sounds: normal: S1, S2 - Psychiatric Psychiatric: Present: A&O x's 3, appropriate affect, intact judgment & insight - Additional findings Additional findings: incisions: bilateral clean and dry bilateral seromas Assessment and Plan Assessment: Impression: Status post bilateral mastectomy eyelids growing in foot neuropathy Plan: 1. follow up in 1 week 2. follow up with DR. Gonzalez CC: Dr. Sanderson
== END | disposition home or self-care (01) ==
LOC: WWCWWP 16:09
PROVIDERS: ATTEND Surgery
DX: Z53.9 Procedure and treatment not carried out, unspecified reason (principal)

== ENCOUNTER → 2019-09-04 | Outpatient (CLI) | payer OTHER ==
--- NOTE | 2019-09-04 16:34 | P.PN ---
Subjective Progress Note Date: 09/04/19 Lorraine is a 68-year-old white female status post bilateral mastectomies and [id number]. Pathology revealed 6 lymph nodes negative for metastases. Fibrous scarring histiocytic aggregates and granulomatous reaction was noted. There was a pathologic complete response in 2 of 6 nodes. Patient had bilateral ma stectomy both breasts were negative for invasive ductal cancer. Patient is seen today regarding seromas bilaterally. All of her GAYATRI drains are removed. The left breast there is a larger seroma and aspiration was performed. In the right breast there is a small seroma which is not large enough for aspiration today. She does have a seroma on the left chest wall and this is to be aspirated. Patient received neoadjuvant therapy and does not need any further chemotherapy. She has opted not to have radiation therapy. She is complaining of some problems with her eyelashes growing in and is being followed by ophthalmology for this. She saw Dr. Eric specialists in [place], he had her place contacts and eye drops which have helped her vision. Patient has bilateral foot neuropathy, she is taking gabapentin for this. Physical exam: Very small seroma right chest wall which is not be aspirated today. Slightly larger seroma left chest wall. Impression: 1. Status post bilateral mastectomies [id number] 2. seroma left chest wall, very small seroma not for drainage in the right chest wall Plan: 1. Aspiration seroma left chest wall CC: Dr. Sanderson
[2019-09-04 16:35] VITALS: BP 116/69; PULSE 77; RESP 20
--- NOTE | 2019-09-04 16:36 | P.PCN ---
Date of Procedure: 09/04/19 Preoperative Diagnosis: Left chest wall seroma Postoperative Diagnosis: same Procedure(s) Performed: Aspiration seroma left chest wall Anesthesia: local Surgeon: Jocelynn Hendrickson Pathology: none sent Condition: stable Disposition: same day Indications for Procedure: seroma left chest wall Operative Findings: Serous fluid Description of Procedure: Area of seroma in the left chest was approached. The chest was prepped using alcohol. A 60 mL syringe with an 18-gauge needle was inserted into the area of seroma. 80 mL of serous fluid was removed. Patient tolerated procedure in stable condition.
== END | disposition home or self-care (01) ==
LOC: WWCWWP 16:15
PROVIDERS: ATTEND Surgery
DX: Z53.9 Procedure and treatment not carried out, unspecified reason (principal)

== ENCOUNTER → 2019-09-17 | Outpatient (CLI) | payer OTHER ==
[2019-09-17 16:31] VITALS: BP 115/63; PULSE 73; RESP 16; TEMP 98.9
--- NOTE | 2019-09-17 16:46 | P.PN ---
Progress Note - Text Progress Note Date: 09/17/19 Lorraine is a 68-year-old white [place] [id number]. Pathology revealed 6 nodes negative for metastases. Fibrous scarring histiocytic aggregates and granulomatous reaction was noted in the right breast. Pathologic complete response in 2 of 6 nodes. Bilateral mastectomy in both breasts were negative for invasive ductal cancer. Patient has been followed for seromas which formed. At this time she has no evidence of any right breast seroma. On the left breast there is still fluid which appears to be present. Aspiration was recommended. Examination: Left chest wall seroma The chest wall no evidence of seroma, incision clean and dry and well-healed, a dogear is present at the lateral aspect of the incision Lungs: Clear Heart: Regular rate and rhythm Plan: 1. Aspiration seroma left chest wall
--- NOTE | 2019-09-17 16:49 | P.PCN ---
Date of Procedure: 09/17/19 Preoperative Diagnosis: seroma left chest wall Postoperative Diagnosis: same Procedure(s) Performed: Aspiration seroma left chest wall Surgeon: Jocelynn Hendrickson Pathology: none sent Condition: stable Disposition: same day Indications for Procedure: seroma left chest wall Operative Findings: Serous fluid removed Description of Procedure: The patient is risks and benefits of the procedure and wishes to proceed. The area of greatest fluctuance is prepped using alcohol. An 18-gauge needle on a 60 mL syringe was inserted into the area of concern. Approximately 120 mL of fluid was removed. There was resolution of the seroma. She tolerated the procedure in stable condition.
== END | disposition home or self-care (01) ==
LOC: WWCWWP 15:52
PROVIDERS: ATTEND Surgery
DX: Z53.9 Procedure and treatment not carried out, unspecified reason (principal)

== ENCOUNTER → 2019-10-15 | Outpatient (CLI) | payer OTHER ==
--- NOTE | 2019-10-15 15:47 | P.PN ---
Progress Note - Text Lorraine is a 68-year-old white [place] [address]. Pathology revealed 6 nodes negative for metastases. Fibrous scarring histiocytic aggregates and granulomatous reaction was noted in the right breast. Pathologic complete response in 2 of 6 nodes. Bilateral mastectomy in both breasts were negative for invasive ductal cancer. Patient has been followed for seromas which formed. At this time she has no evidence of any right breast seroma. On the left breast there is still fluid which appears to be present. Aspiration was recommended. Examination: Left chest wall seroma The right chest wall no evidence of seroma, incision clean and dry and well- healed, a dogear is present at the lateral aspect of the incisions bilateral Lungs: Clear Heart: Regular rate and rhythm Plan: 1. Aspiration seroma left chest wall
--- NOTE | 2019-10-15 15:50 | P.PCN ---
Date of Procedure: 10/15/19 Preoperative Diagnosis: seroma left chest wall Postoperative Diagnosis: Same Procedure(s) Performed: Aspiration seroma left chest wall Surgeon: Jocelynn Hendrickson Pathology: none sent Disposition: same day Description of Procedure: The area of seroma in the left chest wall was prepped using alcohol. An 18- gauge needle on a 60 mL syringe was inserted into the pocket of seroma. 45 mL of fluid was obtained. This was yellow in nature. This appeared to be complete resolution of the seroma. Patient tolerated procedure in stable condition.
[2019-10-15 15:56] VITALS: BP 134/72; PULSE 99; RESP 18; TEMP 98.3
== END ==
LOC: WWCWWP 15:10
PROVIDERS: ATTEND Surgery
DX: Z53.9 Procedure and treatment not carried out, unspecified reason (principal)

== ENCOUNTER → 2019-11-12 | Outpatient (CLI) | payer OTHER ==
--- NOTE | 2019-11-12 16:26 | BD ---
EXAMINATION TYPE: Axial Bone Density DATE OF EXAM: 11/12/2019 COMPARISON: NONE CLINICAL HISTORY: 68-year-old female postmenopausal screening Height: Weight: FRAX RISK QUESTIONS: Alcohol (3 or more units per day): no Family History (Parent hip fracture): no Glucocorticoids (More than 3mos): yes (Ex: prednisone, prednisolone, methylprednisolone, dexamethasone, and hydrocortisone). History of Fracture in Adulthood: yes Secondary Osteoporosis: 1. Type 1 Diabetes: no 2. Hyperthyroidism: no 3. Menopause before 45: no 4. Malnutrition: no 5. Chronic liver disease: no Rheumatoid Arthritis: no Current Tobacco Use: no RISK FACTORS HISTORY OF: History of Wrist Fracture: right When: 2008 Surgery to Spine/Hip(right/left)/Wrist (right/left): lumbar spine/ right wrist When: 2008 Family History of Osteoporosis: no Active: yes Diet low in dairy products/other sources of calcium: yes Postmenopausal woman: age 50 hysterectomy Lost more than 2 inches in height since high school: Frequent falls: pt somewhat unsteady MEDICATIONS: Prednisone or other steroids: eye drops How Lon11/2018 Additional History: EXAM MEASUREMENTS: Bone mineral densitometry was performed using the [employer] System. Bone mineral density about the R hip (g/cm2): 0.873 Bone mineral density about the L hip (g/cm2): 0.890 T Score values are as follows: -----R Neck: -1.2 -----L Neck: -1.1 -----R Total: 0.0 -----L Total: 0.8 Bone mineral density has: decreased -1.7 % since study of: 07.02.2012 Bone mineral density about the L Wrist (g/cm2): 0.584 T Score values are as follows: -----Dist. R+U: -1.1 -----Prox. R+U: -1.0 -----Radius total: -1.5 Bone mineral density : baseline IMPRESSION: Osteopenia (T Score between -2.5 and -1). There is slightly increased risk of fracture and the patient may be considered for treatment. Re-Screen 2-5 years. NOTE: T-SCORE=SD OF THE YOUNG ADULT MEAN.
== END | disposition home or self-care (01) ==
LOC: RADBDWWP 15:30
PROVIDERS: ATTEND Internal Medicine Hematology & Oncology
DX: C50.911 Malignant neoplasm of unspecified site of right female breast (principal); M85.80 Other specified disorders of bone density and structure, unspecified site; Z79.890 Hormone replacement therapy; Z88.2 Allergy status to sulfonamides
CPT/HCPCS: 77080

== ENCOUNTER → 2019-11-19 | Outpatient (CLI) | payer OTHER ==
[2019-11-19 16:47] VITALS: BP 128/47; PULSE 77; RESP 18; TEMP 98.2
--- NOTE | 2019-11-19 17:14 | P.PN ---
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 She has opted not to have any radiation therapy. The patients surgery was done July 27. At this time she is doing well. The patient has had neoadjuvant chemotherapy of TCHP initiated on January 15 completed May 15, 2019. She was started on Anastrozole in September 2019. She is completing several more treatments of chemotherapy. Objective - Vital Signs Vital signs: Vital Signs Temp 98.2 F 11/19/19 16:45 Pulse 77 11/19/19 16:45 Resp 18 11/19/19 16:45 BP 128/47 11/19/19 16:45 Pulse Ox 98 11/19/19 16:45 Intake & Output 11/18/19 11/19/19 11/19/19 18:59 06:59 18:59 Weight 92.533 kg - Exam BMI 36.1 - Constitutional General appearance: Present: cooperative - EENT Eyes: Present: EOMI ENT: Present: hearing grossly normal - Neck Neck: Present: normal ROM - Respiratory Respiratory: bilateral: CTA - Cardiovascular Rhythm: regular Heart sounds: normal: S1, S2 - Gastrointestinal General gastrointestinal: Present: soft - Integumentary Integumentary: Present: normal turgor - Musculoskeletal Musculoskeletal Comment(s): uses a wheel chair - Psychiatric Psychiatric: Present: A&O x's 3, appropriate affect, intact judgment & insight - Additional findings Additional findings: chest wall: no evidence of recurrent cancer Questionable small seroma left chest wall attempted aspiration in successful Assessment and Plan Assessment: Impression/Plan: 1. Patient status post neoadjuvant chemotherapy and bilateral breast mastectomy for stage IIB right breast cancer at this time no evidence of recurrent cancer 2. Patient on anastrozole 3. Patient complaining chemotherapy for Her2 disease 4. Patient will follow up here in 3-4 months time cc: DR. Sanderson encounter 15 minutes, > 50% of time in planning and counselling
== END | disposition home or self-care (01) ==
LOC: WWCWWP 16:16
PROVIDERS: ATTEND Surgery
DX: Z53.9 Procedure and treatment not carried out, unspecified reason (principal)

== ENCOUNTER → 2020-01-06 | Outpatient (CLI) | payer OTHER ==
--- NOTE | 2020-01-07 10:59 | ECHOF ---
Referral Reason:Z02.818 chemo exposure MEASUREMENTS -------- HEIGHT: 160.0 cm WEIGHT: 94.8 kg BP: RVIDd: 3.6 cm (< 3.3) IVSd: 1.2 cm (0.6 - 1.1) LVIDd: 3.7 cm (3.9 - 5.3) LVPWd: 1.1 cm (0.6 - 1.1) IVSs: 1.6 cm LVIDs: 2.6 cm LVPWs: 1.4 cm LAESV Index (A-L): 22.67 ml/m Ao Diam: 3.7 cm (2.0 - 3.7) AV Cusp: 1.8 cm (1.5 - 2.6) MV E German: 0.68 m/s MV DecT: 189 ms MV A German: 0.99 m/s MV E/A Ratio: 0.69 AR PHT: 436 ms RAP: 5.00 mmHg RVSP: 33.26 mmHg FINDINGS -------- Sinus rhythm. This was a technically difficult study with suboptimal views. Hx of breast cancer and double mastactomy. TDS due to scar tissue. The left ventricular size is normal. Left ventricular wall thickness is normal. Overall left vent ricular systolic function is normal with, an EF between 55 - 60 %. The right ventricle is mildly enlarged. Normal LA size by volume 22+/-6 ml/m2. The right atrium was not well visualized. 5.0mg of Lumason was utilized for enhancement of images Interatrial and interventricular septum intact. There is mild aortic regurgitation. There is no evidence of aortic stenosis. There is trace mitral regurgitation. Mild tricuspid regurgitation present. There is borderline pulmonary artery hypertension. The righ t ventricular systolic pressure, as measured by Doppler, is 33.26mmHg. The pulmonic valve was not well visualized. The aortic root size is normal. IVC Not well visulized. There is no pericardial effusion. CONCLUSIONS -------- 1. The left ventricular size is normal. 2. Left ventricular wall thickness is normal. 3. Overall left ventricular systolic function is normal with, an EF between 55 - 60 %. 4. The right ventricle is mildly enlarged. 5. There is mild aortic regurgitation. 6. Mild tricuspid regurgitation present. 7. There is borderline pulmonary artery hypertension. 8. The right ventricular systolic pressure, as measured by Doppler, is 33.26mmHg. SENIOR FINANCIAL REPORTING ANALYST: She Mcdonough RDCS
== END | disposition home or self-care (01) ==
LOC: RADECHMAIN 13:46
PROVIDERS: ATTEND Internal Medicine Hematology & Oncology
DX: Z01.818 Encounter for other preprocedural examination (principal); Z88.2 Allergy status to sulfonamides; I08.2 Rheumatic disorders of both aortic and tricuspid valves; I27.21 Secondary pulmonary arterial hypertension
CPT/HCPCS: 93306; Q9950

== ENCOUNTER → 2021-11-01 | Outpatient (CLI) | payer OTHER ==
--- NOTE | 2021-11-01 19:01 | BD ---
EXAMINATION TYPE: Axial Bone Density DATE OF EXAM: 11/01/2021 COMPARISON: 07/02/2012; STUDY FROM 11/12/2019 NOT AVAILABLE CLINICAL HISTORY: 70 years year old Female. ICD-10 CODE: Z17.0 CARCINOMA OF RT BREAST Height: 62.5 IN Weight: 228 LBS FRAX RISK QUESTIONS: History of Fracture in Adulthood: LT FOOT AGE 56; RT TIB/FIB AGE 61;RT WRIST AGE 66; L1 AGE 66 Secondary Osteoporosis: 3. Menopause before 45: TOTAL HYST AGE 61 RISK FACTORS HISTORY OF: Spine Fracture: L1 AGE 66 History of Wrist Fracture: RT WRIST AGE 66 Surgery to Spine/Wrist (right): AGE 66 Active: LIMITED Diet low in dairy products/other sources of calcium: YES Postmenopausal woman: TOTAL HYST AGE 61 Lost more than 2 inches in height since high school: YES 4 " MEDICATIONS: Additional Medications: GABAPENTIN, CYMBALTA, DIAVAN, BLOOD PRESSURE MEDS, LIPITOR, FLEXERIL, CLONIDI NE, BABY ASPIRIN, NORCO, Additional History: BREAST CANCER WITH CHEMO EXAM MEASUREMENTS: Bone mineral densitometry was performed using the [employer] System. L SPINE SURGERY AGE 66 Bone mineral density about the R hip (g/cm2): 0.928 Bone mineral density about the L hip (g/cm2): 0.921 T Score values are as follows: -----R Neck: -0.8 -----L Neck: -0.8 -----R Total: 0.1 -----L Total: 0.7 Bone mineral density has: Decreased -1.9% since study of: 07/02/2012; 11/12/2019 STUDY NOT AVAILABLE . FRAX: The graph provided illustrates a 11.9 chance for a major osteoporotic fx and a 1.0 chance for t he hips probability for fx in 10 years time. IMPRESSION: Normal (Values between +1 and -1 indicate normal bone mass). Consider repeating this study in 5 year s or sooner if there is some new clinical indication. NOTE: T-SCORE=SD OF THE YOUNG ADULT MEAN.
== END | disposition home or self-care (01) ==
LOC: RADBDWWP 13:06
PROVIDERS: ATTEND Internal Medicine Hematology & Oncology
DX: Z85.3 Personal history of malignant neoplasm of breast (principal); Z17.0 Estrogen receptor positive status [ER+]
CPT/HCPCS: 77080

== ENCOUNTER → 2022-03-15 | Outpatient (CLI) | payer OTHER ==
--- NOTE | 2022-03-15 15:28 | CT ---
EXAMINATION TYPE: CT chest wo con CT DLP: 596.6 mGycm, Automated exposure control for dose reduction was used. DATE OF EXAM: 03/15/2022 3:11 PM COMPARISON: PET/CT 11/29/2018, CT neck 11/03/2021. CLINICAL INDICATION:Female, 71 years old with history of C50.911 breast cancer, Right side breast CA. Pt c/o right arm pain. TECHNIQUE: Multiple axial images were obtained through the chest. Sagittal and coronal reformats were created for review. Contrast used: none. Oral contrast used: none. FINDINGS: LUNGS/ PLEURA: The lung parenchyma appears unremarkable. AIRWAY: Patent and unremarkable. HEART: Size within normal limits. MEDIASTINUM: No gross evidence of adenopathy. VASCULATURE: No aortic aneurysm. Right chest wall Pyfvwj-e-Ondo with distal tip terminating in the s uperior vena cava. Atherosclerosis of the arterial vasculature. MUSCULOSKELETAL: Compression deformity of the L1 vertebral body with at least 50% height loss. Some v acuum disc phenomenon at T12-L1 present. Additional multilevel disc degeneration changes throughout t he spine. Findings of the spine are similar back to the PET on 11/29/2018. SOFT TISSUES/LYMPH NODES: The breasts are surgically absent. LOWER NECK: No significant findings. UPPER ABDOMEN: Gallbladder surgically absent. Scattered clonic diverticula. IMPRESSION: 1. Nothing to explain the patient's right arm pain. 2. No evidence for acute thoracic process. No evidence for lymphadenopathy or suspicious osseous les ion to suggest recurrence.
--- NOTE | 2022-03-15 15:32 | XR ---
EXAMINATION TYPE: XR shoulder limited RT DATE OF EXAM: 03/15/2022 COMPARISON: None HISTORY: History of breast cancer TECHNIQUE: 2 view right shoulder FINDINGS: Humeral head articulates with the glenoid. No acute fracture or dislocation is evident. Acr omioclavicular junction is normal. There is downward sloping of the acromion which can contribute to impingement syndrome. No suspicious lytic lesions are evident. Port is evident on the right. IMPRESSION: 1. No acute osseous abnormality to the right shoulder
--- NOTE | 2022-03-15 15:34 | XR ---
EXAMINATION TYPE: XR cervical spine comp DATE OF EXAM: 03/15/2022 COMPARISON: None HISTORY: History of breast cancer TECHNIQUE: 5 view cervical spine FINDINGS: Facet degenerative changes are present. Oblique view on the left is somewhat limited. There is mild diffuse foraminal narrowing through right cervical foramen. There is a grade 1 spondylolisth esis of C3-4 anteriorly on C5. There is narrowing of the C5-6 disc height. Anterior vertebral body sp urring is present C5-6. Remaining disc heights appear preserved. Posterior spinal lamellar line is in tact. Odontoid is limited with overlying occiput. IMPRESSION: 1. Spondylolisthesis of C4 anteriorly on C5. 2. Degenerative disc changes C5-6. 3. Mild diffuse narrowing of the right cervical foramen. Left foramen cannot be evaluated due to inco mplete rotation.
--- NOTE | 2022-03-15 15:44 | US ---
EXAMINATION TYPE: US venous doppler duplex UE RT DATE OF EXAM: 03/15/2022 COMPARISON: NONE CLINICAL HISTORY: M12.9 ARTHROPATHY. Pain hx of breast CA. SIDE PERFORMED: right Right Arm: Negative for DVT IMPRESSION: 1. Right upper extremity ultrasound negative for deep venous thrombosis.
== END | disposition home or self-care (01) ==
LOC: RADUSWWP 14:11
PROVIDERS: ATTEND Internal Medicine Hematology & Oncology
DX: C50.911 Malignant neoplasm of unspecified site of right female breast (principal); M12.9 Arthropathy, unspecified; J45.998 Other asthma; M43.12 Spondylolisthesis, cervical region; M50.322 Other cervical disc degeneration at C5-C6 level; Z85.3 Personal history of malignant neoplasm of breast
CPT/HCPCS: 71250; 72050

== ENCOUNTER → 2022-10-17 | Outpatient (CLI) | payer OTHER ==
--- NOTE | 2022-10-17 14:59 | MR ---
EXAMINATION TYPE: MR cervical spine wo/w con DATE OF EXAM: 10/17/2022 COMPARISON: Cervical spine radiograph 03/15/2022, CT soft tissue neck 11/03/2021 HISTORY: Neck pain, headaches, shaking in arms and hands. TECHNIQUE: Multiplanar, multisequence images of the cervical spine were acquired without contrast and with 9 mL intravenous Gadavist gadolinium contrast. Diffusion weighted imaging was performed. FINDINGS: Cervical segments are intact. Mild retrolisthesis of C5 on C6. Cervical spinal cord is of normal sign al. Craniovertebral junction relationships are within normal limits. There is a 1.2 cm T1 hypointen se/T2 hyperintense lesion within the T1 vertebral body. No corresponding enhancement identified. No i ncreased STIR signal demonstrated. Lack of left common carotid artery enhancement from its origin to its bifurcation. The visualized left internal carotid artery demonstrates some contrast enhancement. Multilevel disc desiccation. Prominent anterior osteophytosis at C5-C6. C2-C3: No disc bulge/herniation or protrusion. No Canal stenosis. Uncovertebral joint hypertrophy wi th right facet arthropathy resulting in moderate right neural foraminal stenosis. The left neural for amen is patent. C3-C4: No disc bulge/herniation or protrusion. No Canal stenosis. Uncovertebral joint hypertrophy wi th bilateral neural facet arthropathy resulting in mild to moderate bilateral neuroforaminal stenosis . C4-C5: Posterior disc osteophyte complex with mild effacement of the anterior thecal sac. Uncovertebr al joint hypertrophy and facet arthropathy resulting in mild bilateral neural foraminal stenosis. C5-C6: Central disc protrusion superimposed upon a broad-based disc bulge with mild to moderate effac ement of the anterior thecal sac. Uncovertebral joint hypertrophy demonstrated with moderate left darnell ral foraminal stenosis. The right neural foramen is patent. C6-C7: Minimal broad-based disc bulge is also evident central canal stenosis. The neural foramina are patent bilaterally. C7-T1: No disc bulge/herniation or protrusion. No Canal stenosis. Foramina are patent bilaterally. IMPRESSION: 1. C5-C6 disc herniation superimposed upon a broad-based disc bulge resulting in mild to moderate ce ntral canal stenosis. Uncovertebral joint hypertrophy at this level results in moderate left neural f oraminal stenosis. 2. Multilevel degenerative disc disease and facet arthropathy as described above. Mild retrolisthesi s of C5 on C6. 3. Indeterminate 1.2 cm lesion within the T7 vertebral body. This could represent metastasis in the setting of breast cancer however there is no contrast enhancement. This could represent treated metas tasis. Further evaluation with nuclear medicine bone scan is recommended. 4. 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
== END | disposition home or self-care (01) ==
LOC: RADMRIMAIN 11:30
PROVIDERS: ATTEND Orthopaedic Surgery Orthopaedic Surgery of the Spine
DX: M50.322 Other cervical disc degeneration at C5-C6 level (principal); M79.12 Myalgia of auxiliary muscles, head and neck; M50.323 Other cervical disc degeneration at C6-C7 level; M47.812 Spondylosis without myelopathy or radiculopathy, cervical region; M43.12 Spondylolisthesis, cervical region; M99.71 Connective tissue and disc stenosis of intervertebral foramina of cervical region
CPT/HCPCS: 72156; A9585

== ENCOUNTER → 2022-11-12 | Outpatient (CLI) | payer OTHER ==
[2022-11-12 13:35] VITALS: BP 98/62; PULSE 101; RESP 15; TEMP 97.2
--- NOTE | 2022-11-12 14:20 | P.PAINPG ---
PQRS Measure Charge Sheet Comment: HISTORY OF PRESENT ILLNESS: 71 yr old female w at side as a referral from Dr Awan presents today w severe and chronic neck pain secondary to DDD, spondylosis and facet arthropathy without myelopathy for evaluation. Pt states pain level is provoked at 7/10 in intensity, constant, localized in the lower cervical region, sharp in character w shooting pain towards the R shoulder. Pain is provoked by laying supine. Pain is alleviated by PT in 2019, chiropractic treatments in 2007, physician guided home exercises weekly since 2019, heat, medications (N orco 10/325mg), repositioning and rest. Oswestry axial pain score at 26. PMH: OA, R Breast CA, Eczema, IBS, Diverticulosis, Scoliosis, Anxiety, Fibromyalgia PSH: Appendectomy, Lumbar Fusion w Hardware/ Removal, Bladder Suspension, Cholecystectomy, Hysterectomy, Hx of Ectopic , L Hand Surgery, BL Carpal Tunnel Release, Colonoscopy, Port A Cath SH: Never smoker, Occasional ETOH use, Cannabis use FH: Mo- CA/ Cerebral Aneurysm/ at age 57. Fa- CHF/ HTN/ at age 89. Daughter- Brain Tumor/ at age 11. All: See list Meds: See list REVIEW OF ORGAN SYSTEMS: CONSTITUTIONAL: No fevers or chills. No recent weight loss. NEUROLOGICAL: + numbness and tingling along the distal extremities. No seizure disorders or headaches. MUSCULOSKELETAL: + pain PSYCHIATRIC: Denies current depression or suicidal thoughts. Physical Examinations : Constitutional : Cooperative , not in acute distress . Neurologic : Cranial nerve II to XII intact. No focal neurological deficits. Psychiatric : alert & oriented x 3. Matching mood & appropriate affect. Judgment & insight intact. Musculoskeletal : Cervical Spine Motor strength in the deltoid and biceps: Normal right side. Normal Left side Motor strength biceps and the wrist extensors: Normal right side . Normal left side Motor strength in the triceps muscle: Normal right side. Normal left side Deep tendon reflexes: Normal at the biceps. Normal at Brachioradialis. Normal at triceps Vertebral body tenderness to deep palpation over C6 Cervical facet loading test: positive bilaterally Spurling test: positive bilaterally over C6-C7 Neck distraction test: positive bilaterally Jack sign: positive bilaterally Lumbar spine Motor strength lower extremities ,thigh and legs 5/5 Right side , 5/5 Left side Deep tendon reflexes : Normal Knee Jerk. Normal Ankle Jerk Vertebral body tenderness over Damon Test positive Lumbar facet Loading Test: positive R ight / positive Left Range of motion of the lumbar spine Flexion 30 degrees, extension 10 degrees Straight Leg Raise test: Left/ Right positive at degree Radha test: positive right / positive left. Severe tenderness over the Sacroiliac joint on the Right / Left sides Gaenslen test: positive bilaterally Seated flexion test: positive bilaterally. Sacral spine : Severe tenderness over the Sacroiliac joint: right side / left side Range of motion: Flexion of the lumbar spine <60 degrees Range of motion: Extension of the lumbar spine <20 degrees Gaenslen's Test positive Marcial's Test positive Radha test: positive right side / left side Thigh Thrust Test Sacral Thrust Test Imaging: MRI noncontrast of the cervical spine from 10/17/22 reviewed Assessment/ Plan : Cervical DDD Recommendation of DENNIS C6-C7 #1. May need a series of injections for optimal pain relief. Risks, benefits of procedure discussed and patient verbalized understanding. Admits to aspirin or anti- coagulant use or medical history of diabetes. Protocol for discontinuation/ continuation of medications macarena procedure discussed. Minimal anesthesia provided, if clinically indicated, consisting of Versed and Fentanyl. All questions answered. I have spent greater than 30 minutes on patient care today. Dr Noyola was available by phone for the evaluation of this patient. The time was used to review the medical records including relevant urine studies and Prescription history (MAPs), review of the available imaging, evaluation and examination of the patient, coordination of care with the medical staff and if applicable referring physicians, as well as creation of the medical record PQRS Narrative: Smoking Status Never smoker Home Medications: Ambulatory Orders Albuterol Inhaler [Ventolin Hfa Inhaler] 1 - 2 puff INHALATION RT-QID PRN 03/30/14 Cyclobenzaprine [Flexeril] 10 mg PO HS 03/30/14 Fluticasone/Vilanterol [Breo Ellipta 200-25 Mcg INH] 2 puff INHALATION RT-DAILY 05/10/15 Gabapentin [Neurontin] 400 mg PO QID 05/10/15 HYDROcodone/APAP 10-325MG [[place] 10-325] 1 tab PO QID 05/10/15 Atorvastatin [Lipitor] 20 mg PO HS 10/14/18 DULoxetine HCL [Cymbalta] 60 mg PO DAILY 03/05/19 Valsartan/Hydrochlorothiazide [Valsartan-Hctz 320-25 mg Tab] 1 tab PO HS 03/05/19 Potassium Chloride [Klor-Con 20] 20 meq PO DAILY 07/14/19 Budesonide [Pulmicort Flexhaler] 2 puff INHALATION RT-DAILY 07/27/19 DULoxetine HCL [Cymbalta] 30 mg PO DAILY 07/27/19 Tobramycin/Dexamethasone [Tobradex Ophth Susp] 1 drop LEFT EYE DAILY 07/27/19 Tobramycin/Dexamethasone [Tobradex Ophth Susp] 2 drop RIGHT EYE BID 07/27/19 Controlled Substance Measures - Controlled Substance Measures Is patient prescribed a controlled substance at discharge?: No
== END ==
LOC: PNWHC3 13:01
PROVIDERS: ATTEND Specialist
DX: M50.323 Other cervical disc degeneration at C6-C7 level (principal); M48.02 Spinal stenosis, cervical region; Z91.011 Allergy to milk products; Z91.040 Latex allergy status; Z88.8 Allergy status to other drugs, medicaments and biological substances; Z88.2 Allergy status to sulfonamides; Z91.048 Other nonmedicinal substance allergy status
CPT/HCPCS: 99211

== ENCOUNTER 2022-11-27 11:13 | Day surgery (SDC) | payer OTHER ==
[2022-11-26 12:09] VITALS: BMI 35.4
[2022-11-27 11:43] VITALS: TEMP 97.3
[2022-11-27] MEDS ORDERED: LACTATED RINGERS 1,000 ML IV SCH (11:51)
[2022-11-27] MEDS ORDERED: IOPAMIDOL M200 10 ML VIAL ONE (11:52)
[2022-11-27] MEDS ORDERED: methylPREDNISolone ACETATE 40 MG/ML 1 ML VIAL ONE (11:52)
--- NOTE | 2022-11-27 12:01 | P.PCN ---
Procedure(s) Performed: . PROCEDURE 1. Cervical epidural steroid injection under fluoroscopic guidance, C6-7 (fluoroscopy images available in the radiology department ) 2. Cervical epidurogram. PREOPERATIVE DIAGNOSIS: 1- Cervical Degenerative Disc Diseases 2-cervical spondylosis with cervical Facet arthropathy without myelopathy. POSTOPERATIVE DIAGNOSIS: : 1- Cervical Degenerative Disc Diseases , 2-cervical spondylosis with cervical Facet arthropathy without myelopathy ANESTHESIA: Local anesthesia with lidocaine 1% 3 ml only EBL 0 PROCEDURE INDICATION: The patient with neck pain and radiculitis unresponsive to conservative treatment consents for procedure. PROCEDURE DESCRIPTION / TECHNIQUE: The patient was seen and identified in the pr eoperative area. Risks, benefits, complications, including but not limited to infections ,bleeding , allergic reactions to the medications ,and not complete pain releife, and alternatives were discussed with the patient, the patient agreed to proceed with the procedure and signed the consent. Patient was taken to the OR and time out was completed. The patient was placed in the prone position on the procedure table. A pillow was placed under the patients chest to increase the cervical interlaminar space. The cervical area was prepped and draped in the usual sterile fashion. Vital signs were closely monitored during the procedure. Using anterior-posterior fluoroscopy, the C6-7 interlaminar space was identified and the skin over this site was marked and then infiltrated with 1% lidocaine subcutaneously. Subsequently, a 20-gauge 3-1/2-inch Tuohy epidural needle was inserted and advanced toward the epidural space by means of the ``hanging-drop technique and guided by AP and lateral fluoroscopy. The correct needle position in the epidural space was verified with the injection of 2 mL of the water soluble contrast dye [id number]-[id number] and observing an excellent epidurogram with the epidural spread of the dye, after negative aspiration for blood and CSF and in the absence of paresthesias. then, mixture containing 15 mg Dexamethasone and 2 ml of preservative-free normal saline injected and a washout of epidurogram was seen. Needle was withdrawn intact, skin was cleansed, and bandages were applied. Complications= none. Disposition= patient was placed in supine position and transferred to the recovery room area in stable condition and there was no evidence of upper or lower extremity motor or sensory deficit after the procedure patient was discharged from recovery room after discharge criteria met and home discharge instructions was given by the staff and patient will follow with the pain clinic in 2-4 weeks
[2022-11-27] MEDS ORDERED: LACTATED RINGERS 1,000 ML IV ONE (12:05)
[2022-11-27 12:21] VITALS: BP 109/71; PULSE 101; RESP 20
--- NOTE | 2022-11-27 20:09 | FL ---
Intraoperative/procedural fluoroscopic services were provided. Total fluoroscopy time is 3.3 seconds with a total of 1 submitted images to PACS. Please see the operative/procedural note for further deta ils. DAP: [id number] mGym2
== END 2022-11-27 12:30 ==
LOC: ORPAIN 11:13
PROVIDERS: ATTEND Specialist
DX: M50.123 Cervical disc disorder at C6-C7 level with radiculopathy (principal); M47.22 Other spondylosis with radiculopathy, cervical region; Z91.040 Latex allergy status
CPT/HCPCS: 62321; J1030; Q9966

== ENCOUNTER → 2022-12-06 | Outpatient (CLI) | payer OTHER ==
--- NOTE | 2022-12-06 14:23 | NM ---
EXAMINATION TYPE: NM bone scan whole body DATE OF EXAM: 12/06/2022 COMPARISON: NONE CLINICAL INDICATION: Female, 72 years old with history of M99.9 BIOMECHANICAL LESION, UNSPECIFIED; Delayed whole-body scanning was performed following the injection of 25.5 mCi Tc 99m MDP. Images acq uired 3 hours post injection. FINDINGS: There is degenerative uptake noted about the shoulders, sternoclavicular joints, cervical spine, thor acic spine, lumbar spine and knees. There is no intense uptake identified to suggest metastatic disea se. There is increased renal uptake seen bilaterally. Correlate with renal function testing. IMPRESSION: No scintigraphic evidence to suggest metastatic disease at this time.
== END | disposition home or self-care (01) ==
LOC: RADNMMAIN 10:02
PROVIDERS: ATTEND Family Medicine
DX: M99.9 Biomechanical lesion, unspecified (principal)
CPT/HCPCS: 78306; A9503

== ENCOUNTER → 2023-11-22 | Outpatient (CLI) | payer OTHER ==
--- NOTE | 2023-11-22 19:22 | BD ---
EXAMINATION TYPE: Axial Bone Density DATE OF EXAM: 11/22/2023 CLINICAL HISTORY: 72 years old Female. ICD-10 CODE: C50.911 BREAST CANCER Height: 62.5in Weight: 203lb FRAX RISK QUESTIONS: History of Fracture in Adulthood: yes Secondary Osteoporosis: RISK FACTORS HISTORY OF: Spine Fracture: yes, L1 When: age 66 History of Wrist Fracture: yes, right When: age 66 Surgery to Spine/Hip(right/left)/Wrist (right/left): lumbar spine and right wrist When: age 66 MEDICATIONS: EXAM MEASUREMENTS: Bone mineral densitometry was performed using the [employer] System. Bone mineral density about the R hip (g/cm2): 0.957 Bone mineral density about the L hip (g/cm2): 1.011 T Score values are as follows: -----R Neck: -1.7 -----L Neck: -1.2 -----R Total: -0.4 -----L Total: 0.0 Z Score values are as follows: -----R Neck: -0.5 -----L Neck: 0.0 -----R Total: 0.5 -----L Total: 0.9 Bone mineral density has: Decreased -6.9% since study of: 11-01-21 FRAX%s: The graph provided illustrates a 15.8% chance for a major osteoporotic fx and a 2.6% chance f or the hips probability for fx in 10 years time. IMPRESSION: Osteopenia (T Score between -2.5 and -1). There is slightly increased risk of fracture and the patient may be considered for treatment. Re-Screen 2-5 years. NOTE: T-SCORE=SD OF THE YOUNG ADULT MEAN.
== END | disposition home or self-care (01) ==
LOC: RADBDWWP 13:28
PROVIDERS: ATTEND Internal Medicine Hematology & Oncology
DX: M81.8 Other osteoporosis without current pathological fracture (principal); C50.911 Malignant neoplasm of unspecified site of right female breast; J45.998 Other asthma; Z17.0 Estrogen receptor positive status [ER+]; M12.9 Arthropathy, unspecified
CPT/HCPCS: 77080